=== PATIENT | female | born 1975 | race Caucasian/White ===

== ENCOUNTER → 2016-03-31 | Outpatient (REF) | payer OTHER ==
[~2016-03-31] MED LIST: IRON65TA PO; MEDR10TA PO; PERCOCET PO
== END ==
LOC: M LAB REF 16:10
PROVIDERS: ATTEND Surgery
DX: N39.0 Urinary tract infection, site not specified (principal)

== ENCOUNTER 2016-06-15 20:07 | Emergency (ER) | payer OTHER ==
[~2016-06-15] VITALS: Ht 162.6 cm; Wt 83.5 kg
[2016-06-15] MEDS ORDERED: LEXA1TAB2 PO (20:20)
[2016-06-15] MEDS ORDERED: VIST25CA PO (20:20)
[2016-06-15] MEDS ORDERED: KETOROLAC 30 MG/ML VIAL (J1885) IV ONE (21:00)
[2016-06-15 21:01] LABS: BASO % 0.6 % (0.0-1.0); EOS # 0.4 K/mm3 (0.0-0.50); EOS % 5.4 % (0.0-3.0); LARGE UNSTAINED CELL # 0.2 K/mm3 (0.0-0.4); LARGE UNSTAINED CELL % 1.8 % (0.0-4.0); LYMPH # 2.6 K/mm3 (1.5-4.5); LYMPH % 30.2 % (24.0-44.0); MEAN CORPUSCULAR HEMOGLOBIN 20.3 pg (27.0-33.0); MEAN CORPUSCULAR HGB CONC 28.5 g/dl (32.0-36.5); MEAN CORPUSCULAR VOLUME 71.5 fl (80.0-96.0); MONO # 0.4 K/mm3 (0.0-0.8); MONO % 4.7 % (0.0-5.0); NEUTROPHILS # 4.7 K/mm3 (1.8-7.7); NEUTROPHILS % 57.3 % (36.0-66.0); PLATELET COUNT, AUTOMATED 316 k/mm3 (150-450); RED CELL DISTRIBUTION WIDTH 16.9 % (11.5-14.5); WHITE BLOOD COUNT 8.2 K/mm3 (4.0-10.0)
[2016-06-15 21:06] LABS: ADD MORPHOLOGY? YES
[2016-06-15 21:14] LABS: CONTROL LINE HCG INT CTR LINE PRESENT
[2016-06-15 21:19] LABS: ANION GAP 5 MEQ/L (8-16); BLOOD UREA NITROGEN 10 MG/DL (7-18); CALCIUM LEVEL 8.1 MG/DL (8.5-10.1); CARBON DIOXIDE LEVEL 29 MEQ/L (21-32); CHLORIDE LEVEL 106 MEQ/L (98-107); GLOMERULAR FILTRATION RATE > 60.0 (>58); GLUCOSE, FASTING 87 MG/DL (70-105); POTASSIUM SERUM 3.8 MEQ/L (3.5-5.1); SODIUM LEVEL 140 MEQ/L (136-145)
[2016-06-15 21:26] LABS: ANISOCYTOSIS 1+; HYPOCHROMASIA 2+; MICROCYTOSIS 1+; POLYCHROMASIA 1+
[2016-06-15] MEDS ORDERED: NAPR500T PO (22:13)
[2016-06-15 22:17] VITALS: BP 109/68
== END 2016-06-15 22:21 | disposition home or self-care (01) ==
LOC: M ED 20:48
DX: R10.9 Unspecified abdominal pain (principal); Z79.899 Other long term (current) drug therapy; Z88.1 Allergy status to other antibiotic agents; Z88.8 Allergy status to other drugs, medicaments and biological substances
CPT/HCPCS: 80048; 81001; 84703; 85025; 87086; 96374; 99282; J1885

== ENCOUNTER → 2016-11-10 | Outpatient (REF) | payer OTHER ==
[~2016-11-10] MED LIST changes: +LEXA1TAB2 PO; +NAPR500T PO; +VIST25CA PO
[2016-11-12 07:38] LABS: HEPATITIS B SURFACE ANTIBODY NEGATIVE (POSITIVE)
== END ==
LOC: M SFHCLERA 15:02
PROVIDERS: ATTEND Family Medicine
DX: Z00.00 Encounter for general adult medical examination without abnormal findings (principal)

== ENCOUNTER → 2017-03-16 | Outpatient (CLI) | payer OTHER | LOC: M LRY 11:17 | DX: M12.9 Arthropathy, unspecified (principal); M54.5 Low back pain | CPT/HCPCS: 72110 ==

== ENCOUNTER → 2018-04-07 | Outpatient (CLI) | payer OTHER ==
[~2018-04-07] MED LIST changes: +NAPR-50 PO; -NAPR500T PO
--- NOTE | 2018-04-07 15:01 | REP ---
MR CERVICAL SPINE WITHOUT CONTRAST: HISTORY: Neck pain. A small left paracentral and intraforaminal disc protrusion with associate osteophyte formation is present at the C3-4 level. There is minimal effacement of the thecal sac without spinal cord compression. Uncinate process hypertrophy is present on the left. There is mild narrowing of the left C3 neural foramen. The right C3 neural foramen is patent. A disc bulge with associated osteophyte formation is present at the C4-5 level. There is moderate effacement of the thecal sac without spinal cord compression. Bilateral uncinate process hypertrophy is present. This produces mild and minimal narrowing of the right and left C4 neural foramina respectively. A disc bulge and small left paracentral disc protrusion with associate osteophyte formation are present at the C5-6 level. There is moderate effacement of the thecal sac without spinal cord compression. Bilateral uncinate process hypertrophy is present. This produces minimal narrowing of the C5 neural foramina. There is no other disc bulge or herniation. The remaining neural foramina are patent. The spinal cord is normal in signal intensity. The C3-4 through C5-6 intervertebral discs are decreased in height, consistent with disc degeneration. Increased signal intensity on T2-weighted images is present in the endplates of the C4 and C5 vertebral bodies. This represents degenerative change. IMPRESSION: There is cervical spondylosis at the C3-4 through C5-6 levels without spinal cord compression. Electronically Signed by Dat Chau MD 04/07/2018 03:16 P
== END ==
LOC: M RAD 13:08
PROVIDERS: ATTEND Physician Assistant
DX: M50.221 Other cervical disc displacement at C4-C5 level (principal); M50.222 Other cervical disc displacement at C5-C6 level; M47.892 Other spondylosis, cervical region

== ENCOUNTER → 2018-05-15 | Outpatient (REF) | payer OTHER | LOC: M SFHCLUC 16:42 | PROVIDERS: ATTEND Nurse Practitioner Family | DX: R53.81 Other malaise (principal) ==

== ENCOUNTER → 2018-11-14 | Outpatient (REF) | payer OTHER ==
[~2018-11-14] MED LIST changes: -NAPR-50 PO; +NAPR-837 PO
[2018-11-14 17:01] LABS: BASO % 0.5 % (0.0-1.0); EOS # 0.4 10^3/uL (0.0-0.5); EOS % 5.3 % (0.0-3.0); HEMATOCRIT 30.9 % (36.0-47.0); HEMOGLOBIN 8.4 g/dl (12.0-15.5); LYMPH # 2.1 10^3/uL (1.5-5.0); LYMPH % 29.2 % (24.0-44.0); MEAN CORPUSCULAR HEMOGLOBIN 20.1 pg (27.0-33.0); MEAN CORPUSCULAR HGB CONC 27.2 g/dl (32.0-36.5); MEAN CORPUSCULAR VOLUME 74.1 fl (80.0-96.0); MONO # 0.6 10^3/uL (0.0-0.8); MONO % 8.6 % (0.0-5.0); NEUTROPHILS # 4.1 10^3/uL (1.5-8.5); NEUTROPHILS % 56.1 % (36.0-66.0); PLATELET COUNT, AUTOMATED 296 10^3/uL (150-450); RED BLOOD COUNT 4.17 10^6/uL (4.00-5.40); WHITE BLOOD COUNT 7.3 10^3/uL (4.0-10.0)
[2018-11-14 17:34] LABS: PERCENT SATURATION 3.5 % (13.2-45.0); THYROID STIMULATING HORMONE 1.35 uIU/ML (0.358-3.740)
== END ==
LOC: M SFHCLERA 10:59
PROVIDERS: ATTEND Family Medicine
DX: D50.9 Iron deficiency anemia, unspecified (principal); F41.8 Other specified anxiety disorders

== ENCOUNTER 2018-11-24 04:06 | Inpatient (IN) | payer OTHER ==
[~2018-11-24] VITALS: Ht 162.6 cm; Wt 75.6 kg
[2018-11-24] MEDS ORDERED: FERR325T18 (04:16)
[2018-11-24] MEDS ORDERED: NS 2,090 ML in IV 1 EA IV ONE (04:45)
[2018-11-24] MEDS ORDERED: KETOROLAC 30 MG/ML VIAL (J1885) IV ONE (04:45)
[2018-11-24 04:52] LABS: BASO % 0.3 % (0.0-1.0); EOS % 0.1 % (0.0-3.0); HEMATOCRIT 30.2 % (36.0-47.0); HEMOGLOBIN 8.6 g/dl (12.0-15.5); LYMPH # 0.7 10^3/uL (1.5-5.0); LYMPH % 4.4 % (24.0-44.0); MEAN CORPUSCULAR HGB CONC 28.5 g/dl (32.0-36.5); MEAN CORPUSCULAR VOLUME 70.1 fl (80.0-96.0); MONO # 1.3 10^3/uL (0.0-0.8); MONO % 8.4 % (0.0-5.0); NEUTROPHILS # 13.5 10^3/uL (1.5-8.5); NEUTROPHILS % 86.4 % (36.0-66.0); PLATELET COUNT, AUTOMATED 256 10^3/uL (150-450); RED BLOOD COUNT 4.31 10^6/uL (4.00-5.40); WHITE BLOOD COUNT 15.6 10^3/uL (4.0-10.0)
[2018-11-24 05:20] LABS: ALBUMIN 3.1 GM/DL (3.2-5.2); ALT/SGPT 20 U/L (12-78); BILIRUBIN,DIRECT 0.2 MG/DL (0.0-0.2); BILIRUBIN,TOTAL 0.5 MG/DL (0.2-1.0); BLOOD UREA NITROGEN 9 MG/DL (7-18); CALCIUM LEVEL 8.6 MG/DL (8.5-10.1); CARBON DIOXIDE LEVEL 26 MEQ/L (21-32); CHLORIDE LEVEL 102 MEQ/L (98-107); CREATININE FOR GFR 0.88 MG/DL (0.55-1.30); GLOMERULAR FILTRATION RATE > 60.0 (>58); GLUCOSE, FASTING 114 MG/DL (70-100); POTASSIUM SERUM 3.3 MEQ/L (3.5-5.1); SODIUM LEVEL 135 MEQ/L (136-145); TOTAL PROTEIN 7.6 GM/DL (6.4-8.2)
[2018-11-24 05:23] LABS: INFLUENZA A AMPLIFICATION NEGATIVE (NEGATIVE); INFLUENZA B AMPLIFICATION NEGATIVE (NEGATIVE)
[2018-11-24 05:27] LABS: APPEARANCE, URINE TURBID (CLEAR); BACTERIA, URINE AUTO 2+ (NEGATIVE); BILIRUBIN, URINE AUTO NEGATIVE (NEGATIVE); BLOOD, URINE BLOOD 1+ (NEGATIVE); COLOR, URINE AMBER (YELLOW); GLUCOSE, URINE (UA) AUTO NEGATIVE (NEGATIVE); KETONE, URINE AUTO NEGATIVE (NEGATIVE); LEUKOCYTE ESTERASE, URINE AUTO 2+ (NEGATIVE); MUCUS, URINE LARGE (NEGATIVE); NITRITE, URINE AUTO POSITIVE (NEGATIVE); PROTEIN, URINE AUTO 3+ mg/dL (NEGATIVE); RBC, URINE AUTO 28 /HPF (0-3); SPECIFIC GRAVITY URINE AUTO 1.023 (1.002-1.035); SQUAMOUS EPITHELIAL CELL UR AU 49 /HPF (0-6); WBC, URINE AUTO TNTC /HPF (0-3)
[2018-11-24] MEDS ORDERED: PIPERACILLIN/TAZOBACTAM SOD 3.375 GM in D5W MINI-BAG PLUS 50 ML IV ONE (06:15)
[2018-11-24] MEDS ORDERED: ACET-897 PO (06:21)
[2018-11-24] MEDS ORDERED: HYDR-3363 PO (06:21)
[2018-11-24] MEDS ORDERED: FERR1TAB8 PO (06:21)
[2018-11-24] MEDS ORDERED: MORPHINE 4 MG/ML 1ML VIAL/SYRINGE (J2270) IV PRN (06:45)
[2018-11-24] MEDS ORDERED: ONDANSETRON 4MG/2ML VIAL (J2405) IV ONE (07:00)
--- NOTE | 2018-11-24 07:31 | REPVR ---
PROCEDURE INFORMATION: Exam: CT Abdomen and pelvis without contrast Exam date and time: 11/24/2018 6:02 AM Clinical history: 43 years old, female; Abdominal pain; Flank; Left; Additional info: Pyelonephritis, left sided flank pain TECHNIQUE: Imaging protocol: Computed tomography of the abdomen and pelvis without contrast. Radiation optimization: All CT scans at this facility use at least one of these dose optimization techniques: automated exposure control; mA and/or kV adjustment per patient size (includes targeted exams where dose is matched to clinical indication); or iterative reconstruction. COMPARISON: Pelvic ultrasound 06/12/2013 FINDINGS: Detailed evaluation of the abdominal and pelvic viscera is somewhat limited in the absence of intravenous contrast. Pleural space: No acute airspace or pleural disease. Liver: Focal fatty infiltration of the liver. Gallbladder and bile ducts: Cholelithiasis. No biliary ductal dilatation. Pancreas: No pancreatic mass or ductal dilatation. Spleen: Enlarged spleen measuring 14.1 cm in length. Adrenals: Unremarkable adrenals. Kidneys and ureters: Lobulated renal morphology. 1 mm nonobstructing right renal calculus. Asymmetric infiltration of left perinephric fat. If pyelonephritis is of clinical concern delayed postcontrast CT imaging would be recommended for improved characterization. Stomach and bowel: Gastric bypass. Mild small bowel dilatation without a focal transition zone. Prominent stool. Diverticula, without pericolonic inflammation. Appendix: No acute appendicitis. Intraperitoneal space: No significant free fluid. Vasculature: Normal caliber of the abdominal aorta. Pelvic vascular calcifications. Lymph nodes: Subcentimeter lymph nodes. Bladder: Normal morphology of the nondistended bladder. Reproductive: Status post hysterectomy. Bones/joints: Mild degenerative change. Soft tissues: Posterior subcutaneous fluid. IMPRESSION: 1. Cholelithiasis. 2. 1 mm nonobstructing right renal calculus. 3. Asymmetric infiltration of left perinephric fat. If pyelonephritis is of clinical concern delayed postcontrast CT imaging would be recommended for improved characterization. 4. Additional findings as described above. Electronically signed by: Trenton Welsh On 11/24/2018 07:31:07 AM
[2018-11-24] MEDS ORDERED: PERCOCET 5MG/325MG TAB PO PRN (08:00)
[2018-11-24] MEDS: NS 1,000 ML IV SCH ×2 (08:00→12:26)
[2018-11-24] MEDS ORDERED: POTASSIUM CHLORIDE 10 MEQ SR TABLET PO ONE ×2 (08:30→13:00)
[2018-11-24] MEDS: ENOXAPARIN 40 MG/0.4 ML SYRINGE (J1650) SC SCH (11:59)
[2018-11-24] MEDS: PERCOCET 5MG/325MG TAB PO PRN ×2 (12:08→18:13)
[2018-11-24 13:34] LABS: FERRITIN 20 NG/ML (8-252); IRON (FE) 15 UG/DL (50-170); PERCENT SATURATION 3.6 % (13.2-45.0); TOTAL IRON BINDING CAPACITY 413 UG/DL (250-450)
[2018-11-24 14:15] VITALS: BP 115/67
[2018-11-24] MEDS: MORPHINE 4 MG/ML 1ML VIAL/SYRINGE (J2270) IV PRN ×2 (14:28→21:54)
[2018-11-24] MEDS: cefTRIAXone SOD 2 GM in D5W MINI-BAG PLUS 50 ML IV SCH (14:52)
--- NOTE | 2018-11-24 15:48 | HPE ---
DATE OF ADMISSION: 11/24/2018 CHIEF COMPLAINT: Fever, back pain. HISTORY OF PRESENT ILLNESS: This is a 43-year-old female with a history of iron deficiency anemia due to gastric bypass surgery, hysterectomy in the past, presents to the emergency room with complaints of fever, aches and chills on Tuesday night with back pain, left greater than the right, all the way across. The patient has been very uncomfortable since Tuesday with worsening pain. Denies dysuria, urgency, frequency. She says that it hurts to touch her legs. No nausea or vomiting. No abdominal pain. No bright red blood per rectum, melena, black/tarry stools or any history of hematemesis. She has been increasingly fatigued, weak with some shortness of breath when she ambulates around and carries her groceries. The patient is chronically anemic and had previously received blood transfusion. She is noted to have a hemoglobin of 8, white count of 15,000, urine consistent with a urinary tract infection (UTI) and CT shows possible pyelonephritis. In the emergency room, she was found to be febrile at 103.4. Given IV fluids and IV Zosyn due to allergy to Levaquin causing a rash. The patient is unable to take ibuprofen due to history of gastric bypass surgery and was given Tylenol with resultant decrease in fever from 103.4 to 99.1. The hospitalist service was called to admit for a urinary tract infection (UTI), pyelonephritis. The patient does not take any nonsteroidal antiinflammatory drugs (NSAIDs), ibuprofen or Naprosyn for her fever. Has taken Tylenol at home. PAST MEDICAL HISTORY: 1. Iron deficiency anemia requiring blood transfusion previously, 1 unit. 2. History of urinary tract infection. 3. History of obesity, status post gastric bypass surgery. 4. History of shoulder arthritis. 5. Anxiety and depression. PAST SURGICAL HISTORY: 1. Hysterectomy. 2. Gastric bypass surgery. 3. Two shoulder surgeries. 4. Tubal ligation. 5. In vitro fertilization. HOME MEDICATIONS: - Tylenol 1 gram every 6 hours as needed for pain - Lexapro 20 mg daily - ferrous sulfate 325 mg twice a day - hydroxyzine 25 mg every 8 hours as needed for anxiety ALLERGIES: LEVAQUIN causing hives, IBUPROFEN cannot be taken due to history of gastric bypass surgery. SOCIAL HISTORY: No cigarette use. Occasional alcohol with mixed drinks. She previously worked in medical billing, not working currently, she is a housewife. FAMILY HISTORY: Mid 60s mother and father. Father had CVA, skin cancer, coronary artery disease, myocardial infarction. Mother in her 60s with anxiety, depression, AVM, and brain surgery. REVIEW OF SYSTEMS: As per history of present illness. 12-point system otherwise negative. PHYSICAL EXAMINATION: Temperature 103.4, pulse 125 and sinus rhythm, respiratory rate 20, blood pressure 118/76. GENERAL: Awake, alert, oriented times three. Answering questions appropriately. No respiratory distress. No cyanosis. No use of respiratory accessory muscles. No jugular venous distention (JVD), thyromegaly or cervical lymphadenopathy. LUNGS: Clear to auscultation. No wheezing, rales or rhonchi. HEART: S1, S2. Sinus tachycardia. No murmurs, rubs or gallops. ABDOMEN: Soft, nontender, nondistended. Positive bowel sounds. Positive costovertebral angle tenderness bilaterally. EXTREMITIES: No cyanosis, clubbing or pitting edema. LABORATORY DATA: White count 15.6, hemoglobin 8.6, hematocrit 30.2, platelet count 256. Sodium 135, potassium 3.3, chloride 102, bicarbonate 26, BUN 9, creatinine 0.88, glucose 114, lactic acid 2.1 with beta lactic acid 0.7, calcium 8.6, total bilirubin 0.5, direct bilirubin 0.2, AST 19, ALT 20, alkaline phosphatase 134, total protein 7.6, albumin 3.1. CT of the abdomen and pelvis showing obstructive 1 mm kidney stone, fatty liver, gastric bypass, cholelithiasis. Microbiology: Two sets of blood cultures pending. Respiratory panel is negative. Urine culture is pending. Urinalysis showed turbid appearance, pH of 5, protein 3+, 1+ blood, 4 urobilinogen, 2+ leukocyte esterase, too numerous to count white cells, RBCs of 28, 2+ bacteria. ASSESSMENT AND PLAN: This is a 43-year-old female with a history of iron deficiency anemia, gastric bypass surgery, hysterectomy, prior history of blood transfusion of 1 unit, recurrent urinary tract infections, admitted for pyelonephritis. 1. Pyelonephritis. The patient is allergic to Levaquin causing a rash. Ibuprofen cannot be used due to a history of gastric bypass surgery and increased risk of ulcers and gastrointestinal bleed. She will be given Tylenol for fever, Percocet one to two tablets for pain, morphine for breakthrough pain, and she did receive IV Zosyn from the emergency room, currently on ceftriaxone. Await urine culture results. 2. Symptomatic anemia. The patient complains of shortness of breath, generalized weakness, fatigue, unable to perform her usual activities. Hemoglobin is 8.6, microcytic and appears to be secondary to iron deficiency. RDW is elevated. We will check reticulocyte count and smear. At this time, the patient will be given red blood cell transfusion. She has been advised to the pros and cons of blood transfusion, including but not limited to hepatitis B and C, HIV transmission, hemolytic reaction, fluid overload, and acute lung injury. THe patient was agreeable to proceed with blood transfusion. 3. Fatigue, most likely secondary to symptomatic anemia. She does have a history of depression and will be continued on Prozac. We will check a TSH to rule out hypothyroidism. 4. Anxiety and depression. Resume home dose of Prozac and Atarax as needed. 5. Deep vein thrombosis (DVT) prophylaxis with compression stockings. Encourage ambulation. 6. History of gastric bypass surgery, most likely complicating severe iron deficiency. 7. Sepsis secondary to urinary tract infection (UTI). On IV fluids and IV antibiotic. 8. Low potassium, most likely due to decreased oral intake. The patient has been supplemented with potassium 40 mEq by mouth times one. MTDD
[2018-11-24] MEDS: ASCORBIC ACID 500 MG TAB PO SCH (18:12)
[2018-11-24] MEDS: hydrOXYzine 25 MG TAB PO PRN (21:53)
[2018-11-24] MEDS: FERROUS SULFATE 325MG TAB PO SCH (21:53)
[2018-11-24 23:10] LABS: HEMATOCRIT 28.5 % (36.0-47.0); HEMOGLOBIN 8.3 g/dl (12.0-15.5)
[2018-11-24] MEDS ORDERED: diphenhydrAMINE 25 MG CAP PO ONE (23:30)
[2018-11-25] MEDS: PERCOCET 5MG/325MG TAB PO PRN ×3 (00:35→19:44)
[2018-11-25] MEDS ORDERED: PERCOCET 5MG/325MG TAB PO ONE (05:30)
[2018-11-25 06:00] VITALS: BP 105/69
[2018-11-25 06:50] LABS: HEMATOCRIT 29.7 % (36.0-47.0); HEMOGLOBIN 8.6 g/dl (12.0-15.5); MEAN CORPUSCULAR HEMOGLOBIN 21.6 pg (27.0-33.0); MEAN CORPUSCULAR VOLUME 74.4 fl (80.0-96.0); PLATELET COUNT, AUTOMATED 210 10^3/uL (150-450); RED BLOOD COUNT 3.99 10^6/uL (4.00-5.40); WHITE BLOOD COUNT 8.3 10^3/uL (4.0-10.0)
[2018-11-25 07:08] LABS: BLOOD UREA NITROGEN 7 MG/DL (7-18); CALCIUM LEVEL 7.8 MG/DL (8.5-10.1); CARBON DIOXIDE LEVEL 25 MEQ/L (21-32); CHLORIDE LEVEL 104 MEQ/L (98-107); CREATININE FOR GFR 0.78 MG/DL (0.55-1.30); GLOMERULAR FILTRATION RATE > 60.0 (>58); GLUCOSE, FASTING 101 MG/DL (70-100); POTASSIUM SERUM 3.2 MEQ/L (3.5-5.1); SODIUM LEVEL 137 MEQ/L (136-145)
[2018-11-25] MEDS: ASCORBIC ACID 500 MG TAB PO SCH ×2 (08:48→16:57)
[2018-11-25] MEDS: FERROUS SULFATE 325MG TAB PO SCH ×2 (08:48→21:22)
[2018-11-25] MEDS: ENOXAPARIN 40 MG/0.4 ML SYRINGE (J1650) SC SCH (08:49)
[2018-11-25] MEDS: ESCITALOPRAM OXALATE 10 MG TAB (LEXAPRO) PO SCH (08:49)
[2018-11-25 09:06] LABS: IONIZED CALCIUM 4.5 MG/DL (4.5-5.3)
[2018-11-25] MEDS ORDERED: POTASSIUM CHLORIDE 10 MEQ SR TABLET PO ONE (10:00)
[2018-11-25] MEDS ORDERED: CALCIUM GLUCONATE 1,000 MG in D5W MINI-BAG PLUS 100 ML IV ONE (10:00)
[2018-11-25 10:46] LABS: MAGNESIUM LEVEL 1.8 MG/DL (1.8-2.4)
[2018-11-25] MEDS: cefTRIAXone SOD 2 GM in D5W MINI-BAG PLUS 50 ML IV SCH (12:02)
[2018-11-25] MEDS ORDERED: MAG SULF 1GM/100ML (MAG RUN) 1 GM in IV 1 EA IV ONE (13:00)
[2018-11-25 14:00] VITALS: BP 112/73
--- NOTE | 2018-11-25 14:41 | IPN ---
DATE: 11/25/2018 Patient remains febrile with 101 temperature at 6:00 a.m. Continues to complain of back pain across he back without dysuria, urgency, or frequency. Denies any chills, nausea or vomiting. Tolerating her diet well. PHYSICAL EXAMINATION: Temperature T-max 101 at 6:00 a.m., 99.6 currently, 105 pulse, respiratory rate 17, blood pressure 105/69, 98% on room air. Generally awake, alert and oriented times three. No respiratory distress. No pallor or icterus. No jaundice. Pupils are round and reactive. Extraocular muscles are intact. Neck is supple. Full range of motion. Lungs are clear to auscultation. No wheezing, rales or rhonchi. Heart S1, S2 sinus rhythm. Abdomen is soft, nontender, nondistended. Positive bowel sounds. Positive CVA tenderness. Extremities no cyanosis, clubbing or pitting edema. Laboratory data reviewed. Microbiology reviewed. Imaging studies reviewed. ASSESSMENT/PLAN: 43-year-old with gastric bypass with chronic iron deficiency anemia, history of recurrent urinary tract infections, shoulder arthritis, anxiety, depression, hysterectomy, tubal ligation and IVF who presented to the emergency room with a fever of 103.4, white count of 15,000 found to have pyelonephritis. Due to allergy to Levaquin, the patient was given IV Zosyn in the ER and continued on IV ceftriaxone. The patient did complain of symptomatic anemia with a hemoglobin of 8.6 to 8.3 with complaints of weakness and generalized fatigue and some shortness of breath and was transfused 2 units of blood with subsequent fever. Blood was then sent for a blood transfusion reaction inquiry. CURRENT ISSUES: 1. Pyelonephritis on IV ceftriaxone, still febrile with T-max of 101 this morning. White count is normal at 8. Patient is continued on full supportive care awaiting urine and blood culture results. 2. Possible blood transfusion reaction. Hemolytic workup has been sent. The patient did receive 2 units of blood for symptomatic anemia, vitamin C and iron has been given. Currently no signs of active GI bleed. Denies hematemesis, bright red blood per rectum, melena or black tarry stools. 3. Iron deficiency anemia. Most likely due to decreased absorption status post gastric bypass surgery. The patient has been kept on vitamin C, iron supplements, status post 2 units of RBC transfusion. The second had to be discontinued due to complaints of fever. At that time, transfusion reaction protocol was followed, result of which are still pending for hemolysis. 4. Anxiety/depression. Resumed on her home medications. Lexapro and Atarax. 5. Deep vein thrombosis (DVT) prophylaxis with Lovenox. MTDD
[2018-11-25 22:00] VITALS: BP 127/82
[2018-11-26] MEDS: PERCOCET 5MG/325MG TAB PO PRN ×2 (02:22→08:25)
[2018-11-26 06:00] VITALS: BP 103/61
[2018-11-26] MEDS: FERROUS SULFATE 325MG TAB PO SCH ×2 (08:18→21:01)
[2018-11-26] MEDS: ENOXAPARIN 40 MG/0.4 ML SYRINGE (J1650) SC SCH (08:18)
[2018-11-26] MEDS: ASCORBIC ACID 500 MG TAB PO SCH ×2 (08:18→17:16)
[2018-11-26] MEDS: ESCITALOPRAM OXALATE 10 MG TAB (LEXAPRO) PO SCH (08:18)
[2018-11-26] MEDS ORDERED: SENOKOT S TAB PO PRN (10:15)
[2018-11-26] MEDS ORDERED: MOM 30ML SUSPENSION UDC PO PRN (10:15)
[2018-11-26] MEDS ORDERED: NALOXONE INJ 0.4 MG/1 ML VIAL (J2310) IV PRN (10:15)
[2018-11-26] MEDS ORDERED: MORPHINE 30 MG TAB **MSIR PO ONE (10:30)
[2018-11-26] MEDS ORDERED: KETOROLAC 30 MG/ML VIAL (J1885) IV ONE (10:30)
[2018-11-26] MEDS ORDERED: ACETAMINOPHEN 500 MG TAB PO ONE (10:30)
[2018-11-26] MEDS: cefTRIAXone SOD 2 GM in D5W MINI-BAG PLUS 50 ML IV SCH (11:11)
[2018-11-26 11:15] LABS: HEMATOCRIT 26.5 % (36.0-47.0); HEMOGLOBIN 7.9 g/dl (12.0-15.5); MEAN CORPUSCULAR HEMOGLOBIN 21.8 pg (27.0-33.0); MEAN CORPUSCULAR HGB CONC 29.8 g/dl (32.0-36.5); MEAN CORPUSCULAR VOLUME 73.2 fl (80.0-96.0); PLATELET COUNT, AUTOMATED 164 10^3/uL (150-450); RED BLOOD COUNT 3.62 10^6/uL (4.00-5.40); WHITE BLOOD COUNT 5.6 10^3/uL (4.0-10.0)
[2018-11-26 11:40] LABS: BLOOD UREA NITROGEN 6 MG/DL (7-18); CALCIUM LEVEL 7.3 MG/DL (8.5-10.1); CARBON DIOXIDE LEVEL 27 MEQ/L (21-32); CHLORIDE LEVEL 107 MEQ/L (98-107); CREATININE FOR GFR 0.74 MG/DL (0.55-1.30); GLOMERULAR FILTRATION RATE > 60.0 (>58); GLUCOSE, FASTING 117 MG/DL (70-100); MAGNESIUM LEVEL 1.9 MG/DL (1.8-2.4); POTASSIUM SERUM 3.7 MEQ/L (3.5-5.1); SODIUM LEVEL 140 MEQ/L (136-145)
[2018-11-26] MEDS: OMEPRAZOLE 20 MG CAP PO SCH (11:41)
[2018-11-26] MEDS ORDERED: NS 1,000 ML IV SCH (12:00)
--- NOTE | 2018-11-26 12:14 | IPN ---
DATE OF SERVICE: 11/26/2018 The patient complains of severe pain bilateral posterior vertebral ankle with fever of 101 at 2200 on 11/25/2018. Microbiology E. Coli persistent to ampicillin and ampicillin sulbactam. Blood culture negative. CT abdomen and pelvis shows cholelithiasis, nonobstructing right renal calculus, pyelonephritis. No nausea. No vomiting. No abdominal pain. Describes the pain as 8 out of 10. No chills. No cough. Temperature 98.6, pulse 82, respiratory 16, blood pressure 103/61, 91% on room air. Generally, patient is awake, alert, oriented times three, answering questions appropriately. Lungs: Clear to auscultation. No wheezing, rales or rhonchi. Heart: S1, S2. Sinus rhythm. No murmurs, rubs or gallops. Abdomen is soft, nontender, nondistended. Positive bowel sounds. Positive costovertebral angle (CVA) tenderness bilaterally. No rebound, guarding. No hepatosplenomegaly. No abdominal bruit. Extremities: No cyanosis, clubbing. Skin: Warm, dry, pink in color, well perfused. 11/25: CBC, metabolic panel have been reviewed. 11/26 lab work not available. Microbiology: E. Coli urine culture resistant to ampicillin, ampicillin sulbactam. ASSESSMENT AND PLAN: This is a 43-year-old female with history of gastric bypass with iron deficiency, chronic anemia, anxiety, depression, presented to the ER with fever of 103, white count 15, found to have sepsis due to pyelonephritis. Due to allergy to Levaquin, patient was given IV Zosyn and is currently continued on IV ceftriaxone. She did complain of symptomatic anemia with hemoglobin of 8.3 and weakness and generalized fatigue and shortness of breath. Transfused 2 units with concurrent fever. Patient's red blood cell was sent for blood transfusion reaction inquiry. CURRENT ISSUES: Pyelonephritis doing well. Urine culture was resistant to ampicillin, ampicillin sulbactam with E. Coli. T-max was 101 at 2200 on 11/25. White count was normal yesterday, awaiting CBC today. Blood culture is negative. May discharge home on cefdinir, doxycycline or Bactrim. Possible blood transfusion reaction, final results unavailable. She was transfused 2 units of blood for symptomatic anemia. Symptomatic iron deficiency anemia with history of gastric bypass surgery, possible GI bleed. Patient had been transfused 2 units. Prilosec 20 mg daily. DISCHARGE PLAN: If afebrile overnight, may discharge in the morning. May need EGD to rule out anastomotic ulcer or erosion causing GI bleed if heme positive stool. MTDD
[2018-11-26 14:00] VITALS: BP 103/65
[2018-11-26] MEDS: ACETAMINOPHEN 500 MG TAB PO SCH (21:00)
[2018-11-26] MEDS: hydrOXYzine 25 MG TAB PO PRN (21:00)
[2018-11-26] MEDS: MORPHINE 30 MG TAB **MSIR PO PRN (21:01)
[2018-11-26 22:00] VITALS: BP 118/78
[2018-11-27] MEDS: MORPHINE 30 MG TAB **MSIR PO PRN (05:19)
[2018-11-27 06:00] VITALS: BP 115/79
[2018-11-27] MEDS: ACETAMINOPHEN TAB 650MG DOSE (2X325MG) PO PRN ×2 (06:29→18:27)
[2018-11-27] MEDS ORDERED: ISOVUE-370 76% 100ML VIAL (Q9967) As Ordered ONE (08:11)
--- NOTE | 2018-11-27 08:31 | REP ---
PA and lateral chest: Comparisons are 07/28/2015 and 05/25/2013. There is interstitial coarsening in the left lung inferiorly compatible with focal interstitial infiltrate. There is a small left pleural effusion. Right lung is clear. Cardiac size is normal. The tom, mediastinum, skeletal structures are unremarkable. Impression: Infiltrate inferiorly in the left lung. Small left pleural effusion. Electronically Signed by Josh Muñoz MD 11/27/2018 08:21 A
[2018-11-27] MEDS: ACETAMINOPHEN 500 MG TAB PO SCH ×3 (09:00→22:39)
--- NOTE | 2018-11-27 09:05 | REP ---
CT of the chest with IV contrast: Comparison is the PA and lateral chest performed earlier today. There is an infiltrate in the left lower lobe and a small left pleural effusion. Additionally, there is a small infiltrate posteriorly in the left upper lobe. There is also a subtle infiltrate medially in the right lower lobe. There is no right pleural effusion. The thoracic aorta is unremarkable. Cardiac size is normal. There is no pericardial effusion. There is no mediastinal, hilar or axillary lymphadenopathy. The visualized upper abdominal contents are unremarkable. However, on the abdomen/pelvis CT of 11/24/2018. Gallbladder calculi were identified. These are excluded on the current study. Impression: Left lower lobe and left upper lobe infiltrates. Small left pleural effusion. Small right lower lobe infiltrate. Cholelithiasis. Electronically Signed by Josh Muñoz MD 11/27/2018 08:56 A
[2018-11-27] MEDS: ASCORBIC ACID 500 MG TAB PO SCH ×2 (09:18→18:27)
[2018-11-27] MEDS: ESCITALOPRAM OXALATE 10 MG TAB (LEXAPRO) PO SCH (09:19)
[2018-11-27] MEDS: FERROUS SULFATE 325MG TAB PO SCH ×2 (09:19→20:57)
[2018-11-27] MEDS: OMEPRAZOLE 20 MG CAP PO SCH (09:19)
[2018-11-27] MEDS: ENOXAPARIN 40 MG/0.4 ML SYRINGE (J1650) SC SCH (09:20)
[2018-11-27 10:18] LABS: IMMUNOGLOBULIN G 1080 MG/DL (681-1648); LDH LACTATE DEHYDROGENASE 172 U/L (84-246); RHEUMATOID FACTOR QUANT < 10.0 IU/ML (<15.0)
[2018-11-27] MEDS: cefTRIAXone SOD 2 GM in D5W MINI-BAG PLUS 50 ML IV SCH (11:14)
[2018-11-27 11:24] LABS: MONO REFLEX EBV COMP NEGATIVE (NEGATIVE)
[2018-11-27 12:08] LABS: HIV 1&2 SCREEN CENTAUR NEGATIVE (NEGATIVE)
[2018-11-27 14:00] VITALS: BP 120/74
[2018-11-27 14:23] LABS: COMPLEMENT C3 117 MG/DL (90-180); COMPLEMENT C4 22 MG/DL (10-40)
--- NOTE | 2018-11-27 14:37 | IPN ---
DATE: 11/27/2018 Patient continues to be febrile with a maximum temperature (T-max) of 101.1 this morning. Pain the lower back bilaterally is slightly improved despite ceftriaxone. Patient still complains of some dysuria. No urgency or frequency. She also complains of a headache but no neck rigidity. No confusion or changes in vision. Patient's white count has decreased to normal at 5.6. She still continues to complains of generalized weakness. Transfusion reaction was negative. Hemoglobin is 7.9 after patient has been given four liters of intravenous fluid from admission. Patient has remained net negative balance for the past three days. PHYSICAL EXAMINATION: Vital Signs: Temperature 100.3, maximum temperature (T-max) 101.1 at 6:00 a.m. this morning. Pulse 100, respiratory rate 16, blood pressure 115/79, 90-99% on room air. General: Patient is awake, alert, oriented times three. Answers questions appropriately. No icterus. No jaundice. No pallor. Tongue is midline. No facial asymmetry. Neck is supple. Full range of motion. No meningeal signs. Negative Kernig and Brudzinski signs. Lungs: Diminished with fine crackles bilaterally. Heart: S1, S2. Sinus rhythm with episodes of sinus tachycardia. Abdomen is soft, nontender, nondistended. Positive bowel sounds. Positive costovertebral angle (CARDIOVASCULAR A) tenderness bilaterally. Extremities: No cyanosis, clubbing or pitting edema. LABORATORY DATA: White count 5.6, hemoglobin 7.9, hematocrit 26.5, platelet count 164. Sodium 140, potassium 3.7, chloride 107, bicarbonate 27, BUN 6, creatinine 0.74, glucose 117, magnesium 1.9, calcium 7.3, LDH 172. Ionized calcium yesterday was 4.5. Microbiology 11/26/2018: Hemoccult stool is negative. Positive urine culture for E Coli with resistant to ampicillin, ampicillin sulbactam. Two sets of blood cultures are no growth after 72 hours. Respiratory panel was negative. CT chest shows left lower lobe and left upper lobe infiltrates, small left pleural effusion, right lower lobe infiltrate and cholelithiasis. ASSESSMENT/PLAN: This is a 43-year-old female admitted on 11/24/2018 with complaints of fever and back pain. In the emergency room, she was found to be febrile at 103.4, given IV ceftriaxone due to history of quinolone allergy. CT abdomen and pelvis showed pyelonephritis, urine culture grew out E Coli. She remains persistently febrile to 101 and was found on chest x-ray to have a left lower lobe, left upper lobe infiltrate and right small infiltrate at the base. Azithromycin has been added for a typical coverage. Urine is Streptococcus pneumoniae, Legionella, Mycoplasma has been sent. Respiratory panel is negative. She is kept on isolation, droplet precautions. ACUTE ISSUES: 1. Acute pyelonephritis currently on intravenous ceftriaxone. Urine culture showed E Coli with resistance to ampicillin, ampicillin sulbactam. Patient continues to be afebrile with Maximum temperature (T-max) of 101.1 despite 3 days of intravenous ceftriaxone. At this time, other inquiry included CT chest, which showed a new bibasilar infiltrate, left upper lobe infiltrate as well and small pleural effusion. Azithromycin has been added. Compliment levels as well as immunoglobulin levels, HIV have all been added as well as infectious disease consultation. 2. Left-sided pneumonia: Patient was net positive balance for the past 3 days due to sepsis due to urinary tract infection (UTI). Patient has also been given blood with hemolytic panel being negative and transfusion reaction was negative, due to left-sided infiltrates. The patient is continued on ceftriaxone. Azithromycin was added for atypicals. Urine legionella has been sent as well as mycoplasma. HIV is negative. Referred to Dr. Alexander for any changes in antibiotics. Infectious disease consultation has been made. 3. Symptomatic anemia with continuous complaints of generalized weakness as well as status post two units red blood cell transfusion with fever during the transfusion. Second unit on admission. Transfusion reaction history was negative for any transfusion reaction. No signs for hemolysis on the RBC peripheral smear as well. Due to hemoglobin of 7.9, most likely due to hemodilution with 4 liters of IV fluid given in the past 3 days. Patient will be given RBC transfusion one unit due to continued complaints of generalized weakness, Lasix to decrease risk of fluid overload. 4. Iron deficiency anemia in the setting of prior history of gastric bypass surgery. Hemoccult stool is negative. Patient is continued on iron and vitamin C. Have patient followup for further workup if persistent anemia occur. No signs of hemolysis according to the peripheral blood smear. Patient's retic count and RDW are adequate. Does not appear to have any bone marrow issues or signs of hemolysis. Most likely from bleeding. Defer to outpatient primary care provider (PCP) to refer to gastroenterology for possible esophagogastroduodenoscopy (EGD). Continue on Prilosec for now, vitamin C and iron tablets. 5. Anxiety and depression: She is continued on Atarax and Lexapro. MTDD
[2018-11-27] MEDS ORDERED: AZITHROMYCIN INJ 500 MG, VIAL MATE ADAPTER 1 EACH in D5W 250 ML IV SCH (15:00)
[2018-11-27] MEDS ORDERED: FUROSEMIDE 20 MG/2 ML VIAL (J1940) IV ONE (15:00)
[2018-11-27 16:01] LABS: BLOOD UREA NITROGEN 5 MG/DL (7-18); CALCIUM LEVEL 7.6 MG/DL (8.5-10.1); CARBON DIOXIDE LEVEL 29 MEQ/L (21-32); CHLORIDE LEVEL 106 MEQ/L (98-107); CREATININE FOR GFR 0.55 MG/DL (0.55-1.30); GLOMERULAR FILTRATION RATE > 60.0 (>58); GLUCOSE, FASTING 87 MG/DL (70-100); POTASSIUM SERUM 3.7 MEQ/L (3.5-5.1); SODIUM LEVEL 140 MEQ/L (136-145)
[2018-11-27 16:04] LABS: BASO % 0.4 % (0.0-1.0); EOS # 0.3 10^3/uL (0.0-0.5); EOS % 5.7 % (0.0-3.0); HEMATOCRIT 28.3 % (36.0-47.0); HEMOGLOBIN 8.2 g/dl (12.0-15.5); LYMPH # 1.2 10^3/uL (1.5-5.0); LYMPH % 22.1 % (24.0-44.0); MEAN CORPUSCULAR HEMOGLOBIN 21.5 pg (27.0-33.0); MEAN CORPUSCULAR VOLUME 74.3 fl (80.0-96.0); MONO # 0.5 10^3/uL (0.0-0.8); MONO % 8.7 % (0.0-5.0); NEUTROPHILS # 3.3 10^3/uL (1.5-8.5); NEUTROPHILS % 62.7 % (36.0-66.0); PLATELET COUNT, AUTOMATED 217 10^3/uL (150-450); RED BLOOD COUNT 3.81 10^6/uL (4.00-5.40); WHITE BLOOD COUNT 5.3 10^3/uL (4.0-10.0)
[2018-11-27 16:45] LABS: ERYTHROCYTE SEDIMENTATION RATE 52 mm/hr (0-20)
[2018-11-27 18:40] VITALS: BP 115/79
--- NOTE | 2018-11-27 20:28 | CR ---
DATE OF CONSULTATION: 11/27/2018 CONSULTATION REPORT FOR: Dr. Soni REASON FOR CONSULTATION: Evaluation of fever, back pain and headache. HISTORY OF PRESENT ILLNESS: Sirena is a pleasant 43-year-old female who presented to the hospital on 11/24/2018 complaining of fever, body aches and chills associated with low back pain, left greater than right along with a headache. The patient did not have dysuria, hematuria, urgency or frequency. She had pain down her legs. She did not have any nausea, vomiting, abdominal pain or diarrhea. She has a history of gastric bypass with chronic fatigue. She does not take her vitamins. She also was complaining of some shortness of breath with exertion. The patient has a history of chronic iron deficiency anemia for which she requires blood transfusion but does not take her iron supplements. She has a history of anxiety and depression. In the emergency room (ER), she was found to have a temperature of 103.4. She was started on IV Rocephin and her fever has decreased from 103-101. Her white count from 14,000 to normal but she remains febrile. She also continues with a headache. PAST MEDICAL HISTORY: Significant for iron deficiency anemia status post blood transfusions from gastric bypass, a history of urinary tract infection (UTI) last year and this second time, history of morbid obesity status post gastric bypass, shoulder arthritis, anxiety and depression. PAST SURGICAL HISTORY: Hysterectomy, gastric bypass 10 years ago, shoulder surgery, tubal ligation, in vitro fertilization. The patient has three healthy children. MEDICATIONS: At home, she is on: - Lexapro 20 mg daily - hydroxyzine 25 mg every eight hours - ferrous sulfate which she is supposed to take but does not twice a day She is currently on: - IV Rocephin 2 grams every 24 hours - Senokot two tablets by mouth twice a day as needed - morphine as needed LABORATORY DATA: White count is 15.6 on 11/24/2018, today is was 5.3, hemoglobin 8.2, hematocrit 28.3, platelets 217, 62% neutrophils, 22% lymphocytes, 5% monocytes. ESR 52. Reticulocyte count 1.1. S Sodium 140, potassium 3.7, chloride 106, bicarbonate 24, BUN 5, creatinine 0.5, glucose 87, calcium 7.6, CRP 17.3, LDH 172. Immunoglobulin level 1080, IgA 293, IgM 164. Rheumatoid factor less than 10. Complement level, C3 and C4 were normal. SHAHZAD pending. Serology: Legionella IgG pending. Urine Legionella antigen pending. Mycoplasma IgM and IgG pending. MRSA screen was negative. Pneumococcal antigen pending. EBV serology was done. HIV negative. SOCIAL HISTORY: She lives with her three children. One is in college going for physician marketing administrative assistant (PA) school. She is . She does not have any animals. No pets or dogs. No travel. No recent dog bites. Blood cultures two sets were negative on 11/24/2018. Urine culture was E-coli resistant to ampicillin and Unasyn. Respiratory panel was negative. Urinalysis had too numerous to count white cells with 28 red cells. REVIEW OF SYSTEMS: The patient has no nausea, vomiting or diarrhea. No cough or shortness of breath. No pleuritic chest pain. No upper respiratory infection. No runny nose or postnasal drip. Her only symptoms are headache which has been persistent, low back pain which has improved, and the fever. She also feels off balance. PHYSICAL EXAM Maximum temperature (T-max) today 101.1, currently 98, respirations 15, blood pressure 120/74, oxygen saturation 95% on room air, pulse 81. HEART: Normal S1, S2. No murmurs, rubs or gallops. LUNGS: Clear. No wheezes, rales or rhonchi. ABDOMEN: Soft, nontender. No hepatosplenomegaly. BACK: No costovertebral angle (CVA) or lumbosacral. EXTREMITIES: No clubbing, cyanosis or edema. No rashes. Joints nontender. HENT Neck is not stiff. Negative Brudzinski and Kernig. no adenopathy SKIN no rashes , joints no synovitis normal ROM IMAGING STUDIES: CT abdomen and pelvis showed asymmetric inflammation in the left perinephric fat suspicious for pyelonephritis. Chest x-ray done on 11/27/2018 showed inferior infiltrate in the left lung, small left pleural effusion. CT chest and abdomen showed left lower lobe, left upper lobe infiltrate, small left pleural effusion, small right lower lobe infiltrate, cholelithiasis. IMPRESSION: This is a 43-year-old female who was admitted with fever, leukocytosis and low back pain associated with a headache. She was treated for a presumptive pyelonephritis as her CT was suggestive of pyelonephritis. Urinalysis had pyuria and urine culture had Escherichia (E) coli. She clinically is somewhat improved. Her white count has normalized. Her temperature has gone from 103-101 but she still has a persistent headache. CT chest was obtained even though the patient is asymptomatic which showed fluffy infiltrates. I am not convinced this is CAP/HCAP pneumonia. She has no pulmonary symptoms at all not hypoxic no cough or SOB and I would not treat her as a pneumonia patient. PLAN: Continue with IV Rocephin. Discontinue Zithromax. Consider lumbar puncture if headache persists and fever Case has been discussed Dr. Soni who has ordered the lumbar puncture in case her fever persists tomorrow. Also would add Lyme serology although denied being outdoor or tick bites MTDD
[2018-11-27 21:30] VITALS: BP 111/73
[2018-11-28 06:00] VITALS: BP 111/79
[2018-11-28 06:51] LABS: HEMATOCRIT 31.5 % (36.0-47.0); HEMOGLOBIN 9.3 g/dl (12.0-15.5); MEAN CORPUSCULAR HEMOGLOBIN 21.7 pg (27.0-33.0); MEAN CORPUSCULAR HGB CONC 29.5 g/dl (32.0-36.5); MEAN CORPUSCULAR VOLUME 73.4 fl (80.0-96.0); PLATELET COUNT, AUTOMATED 212 10^3/uL (150-450); RED BLOOD COUNT 4.29 10^6/uL (4.00-5.40)
[2018-11-28 07:16] LABS: BASOPHILS 1 % (0-1); EOSINOPHILS 8 % (0-3); HYPOCHROMASIA 1+; LYMPHOCYTES 32 % (16-44); MONOCYTES 3 % (0-5); NEUTROPHILS 55 % (28-66); PLATELET ESTIMATE NORMAL (NORMAL)
[2018-11-28 07:17] LABS: ANISOCYTOSIS 1+; MICROCYTOSIS 1+
[2018-11-28 07:20] LABS: BLOOD UREA NITROGEN 5 MG/DL (7-18); CARBON DIOXIDE LEVEL 30 MEQ/L (21-32); CHLORIDE LEVEL 106 MEQ/L (98-107); CREATININE FOR GFR 0.54 MG/DL (0.55-1.30); GLOMERULAR FILTRATION RATE > 60.0 (>58); GLUCOSE, FASTING 74 MG/DL (70-100); POTASSIUM SERUM 3.8 MEQ/L (3.5-5.1); SODIUM LEVEL 141 MEQ/L (136-145)
[2018-11-28] MEDS: ENOXAPARIN 40 MG/0.4 ML SYRINGE (J1650) SC SCH (08:08)
[2018-11-28] MEDS: ASCORBIC ACID 500 MG TAB PO SCH ×2 (08:27→18:53)
[2018-11-28] MEDS: ACETAMINOPHEN 500 MG TAB PO SCH ×2 (08:27→20:00)
[2018-11-28] MEDS: ESCITALOPRAM OXALATE 10 MG TAB (LEXAPRO) PO SCH (08:27)
[2018-11-28] MEDS: OMEPRAZOLE 20 MG CAP PO SCH (08:28)
[2018-11-28] MEDS: FERROUS SULFATE 325MG TAB PO SCH ×2 (08:28→20:00)
[2018-11-28] MEDS ORDERED: PURE500C5 PO (10:20)
[2018-11-28] MEDS ORDERED: OMEP-218 PO (10:20)
[2018-11-28] MEDS ORDERED: CEFD300CAP PO (10:21)
[2018-11-28] MEDS ORDERED: ONDANSETRON 4 MG ORAL DISINTEGRATING TAB (Q0162 PER 1MG) PO ONE (11:00)
[2018-11-28] MEDS ORDERED: ONDANSETRON 4MG/2ML VIAL (J2405) IV PRN (11:00)
[2018-11-28] MEDS: cefTRIAXone SOD 2 GM in D5W MINI-BAG PLUS 50 ML IV SCH (11:12)
--- NOTE | 2018-11-28 11:15 | IPN ---
DATE OF SERVICE: 11/28/2018 Last maximum temperature (Tmax) was at 11:14. 100.3 and 100.6 on 11/27/2018 at 8 a.m. and 11:14 a.m. yesterday. The patient has been well during the night. Complained of a little nausea and still with a headache this morning that is generalized. The patient is currently on Tylenol 1 gram twice a day. Awaiting lumbar puncture. Vital Signs: Tmax 100.6. Current temperature is 97.9, pulse 70, respiratory rate 18, blood pressure 111/79, 97% on room air. Generally, the patient is awake, alert, oriented times three. Answering questions appropriately. She has no icterus. No jaundice. No pallor. Moist mucous membranes. No meningeal irritation. Negative Kernig and Brudzinski signs. No jugular venous distention (JVD). No thyromegaly. No cervical lymphadenopathy. Lungs: Air entry is equal bilaterally. Fine crackles at the bases. Heart: S1, S2. Sinus rhythm. Abdomen is soft, nontender, nondistended. Positive costovertebral angle (CVA) tenderness bilaterally, left greater than the right. Extremities: No cyanosis, clubbing, or pitting edema. LABORATORY DATA: White count 6, hemoglobin 9.3, hematocrit 31, platelet count 212. Sodium 141, potassium 3.8, chloride 106, bicarbonate 30, BUN 5, creatinine 0.54, glucose of 74. MICROBIOLOGY: Urine culture: Escherichia (E.) coli resistant to ampicillin, ampicillin sulbactam. Blood culture: Negative. Respiratory panel: Negative. Hemoccult stool: Negative. Sputum gram stain: Pending. CT chest: Left upper middle lobe infiltrate, small left effusion, right lower lobe infiltrate. ASSESSMENT AND PLAN: This is a 43-year-old female who presented to the emergency room with fever, flank pain. Found to have bilateral pyelonephritis. Started on intravenous (IV) ceftriaxone. Urine culture grew out Escherichia (E.) coli, which was resistant to ampicillin, ampicillin sulbactam. Since then, the patient has had recurrent fevers until 11/27/2018. IMPRESSION: 1. Acute bilateral pyelonephritis, on IV ceftriaxone. Urine culture is sensitive to ceftriaxone. Last fever was 100.6 at 8 a.m. 11/27/2018. Due to recurrent fevers, lumbar puncture was ordered. If negative, may discharge home in the morning, per Dr. Alexander, since the patient is asymptomatic from a pneumonia, no reason to treat the patient for this. 2. Abnormal CT, most likely fluid overload. No complaints of cough, shortness of breath despite having fever. No chills. No changes in antibiotics, per Dr. Alexander, continue with IV ceftriaxone for pyelonephritis. 3. Symptomatic anemia, status post 3 units red blood cell (RBC) transfusion. The patient had a fever during the transfusion but had negative transfusion reaction. The patient's hemoglobin is 9.3. She is continued on iron and vitamin C as outpatient. 4. Iron-deficiency anemia in the setting of prior gastric bypass surgery. Hemoccult stool is negative. She is on iron and vitamin C. Status post 3 units RBC transfusion. The patient requested IV iron, but it is not clinically indicated. Defer to outpatient primary care physician to refer to gastroenterology to rule out chronic gastrointestinal (GI) issues. 5. Anxiety and depression. On Atarax and Lexapro. DISPOSITION: If lumbar puncture is negative, the patient is afebrile for 24 hours, may be discharged home with outpatient followup with her primary care physician. DAVID
[2018-11-28] MEDS ORDERED: ONDANSETRON 4 MG ORAL DISINTEGRATING TAB (Q0162 PER 1MG) PO PRN (14:00)
[2018-11-28 15:26] LABS: APPEARANCE, CSF CLEAR (CLEAR); COLOR, CSF COLORLESS (COLORLESS); CSF TUBE# CELL CNT TUBE 1
[2018-11-28 15:43] LABS: CSF TUBE# GLU TUBE 2; CSF TUBE# TP TUBE 2; GLUCOSE CSF 49 MG/DL (40-75); TOTAL PROTEIN,CSF 27 MG/DL (15-45)
[2018-11-28] MEDS: MORPHINE 30 MG TAB **MSIR PO PRN (16:15)
--- NOTE | 2018-11-28 17:06 | REP ---
Procedure: Fluoro guidance for lumbar puncture. History: Headache The procedure was performed under the direct supervision of Dr. Rizo. The risks and benefits of the procedure were explained to the patient and informed consent was obtained. The L3-4 interspace was localized using fluoroscopic guidance. The skin was prepped and draped in a sterile fashion. 1% lidocaine was used as a local anesthetic. Using fluoroscopic guidance a 22-gauge spinal needle was inserted and advanced into the thecal sac. 12 ml of spinal fluid was withdrawn and sent to lab. The patient tolerated the procedure well and there were no immediate complications. Less than 6 seconds of fluoro time was utilized for this procedure. Electronically Signed by NOHELIA Ott 11/28/2018 04:49 P Electronically Signed by Donnie Rizo MD 11/28/2018 04:57 P
[2018-11-28 17:34] VITALS: BP 124/84
[2018-11-28] MEDS ORDERED: METOCLOPRAMIDE INJ 10MG/2ML VIAL (J2765) IV ONE (18:45)
[2018-11-28] MEDS ORDERED: SUMAtriptan SUCCINATE 6 MG/0.5 ML VIAL SC PRN (18:45)
[2018-11-28] MEDS ORDERED: SUMAtriptan SUCCINATE 6 MG/0.5 ML VIAL SC ONE (18:45)
[2018-11-28 22:00] VITALS: BP 100/70
[2018-11-29] MEDS: METOCLOPRAMIDE INJ 10MG/2ML VIAL (J2765) IV SCH ×2 (00:13→06:17)
[2018-11-29] MEDS ORDERED: SULF1TAB93 PO (05:04)
[2018-11-29] MEDS ORDERED: ACETAMINOPHEN TAB 650MG DOSE (2X325MG) PO PRN (05:45)
[2018-11-29 06:00] VITALS: BP 100/65
[2018-11-29 06:18] LABS: HEMOGLOBIN 9.4 g/dl (12.0-15.5); MEAN CORPUSCULAR HEMOGLOBIN 22.2 pg (27.0-33.0); MEAN CORPUSCULAR HGB CONC 30.3 g/dl (32.0-36.5); MEAN CORPUSCULAR VOLUME 73.3 fl (80.0-96.0); PLATELET COUNT, AUTOMATED 260 10^3/uL (150-450); RED BLOOD COUNT 4.23 10^6/uL (4.00-5.40); WHITE BLOOD COUNT 7.5 10^3/uL (4.0-10.0)
[2018-11-29 06:36] LABS: BLOOD UREA NITROGEN 4 MG/DL (7-18); CALCIUM LEVEL 8.4 MG/DL (8.5-10.1); CARBON DIOXIDE LEVEL 28 MEQ/L (21-32); CHLORIDE LEVEL 106 MEQ/L (98-107); CREATININE FOR GFR 0.63 MG/DL (0.55-1.30); GLOMERULAR FILTRATION RATE > 60.0 (>58); GLUCOSE, FASTING 92 MG/DL (70-100); POTASSIUM SERUM 3.9 MEQ/L (3.5-5.1); SODIUM LEVEL 140 MEQ/L (136-145)
[2018-11-29 06:54] LABS: ANISOCYTOSIS 2+; BASOPHILS 3 % (0-1); EOSINOPHILS 4 % (0-3); LYMPHOCYTES 22 % (16-44); MONOCYTES 7 % (0-5); NEUTROPHILS 64 % (28-66); PLATELET ESTIMATE NORMAL (NORMAL)
--- NOTE | 2018-11-29 07:10 | DSES ---
DATE OF ADMISSION: 11/24/2018 DATE OF DISCHARGE: 11/29/2018 PRIMARY DISCHARGE DIAGNOSES: 1. Acute pyelonephritis. 2. Recurrent fever. Lumbar puncture was negative for meningitis. 3. Symptomatic anemia status post three units red blood cell transfusion. 4. Chronic iron deficiency anemia in the setting of gastric bypass surgery. 5. Generalized weakness secondary to symptomatic anemia. 6. Anxiety and depression. 7. History of gastric bypass surgery. 8. Hypokalemia, low potassium level. DISCHARGE MEDICATIONS: - Bactrim one tablet by mouth twice a day for seven days - omeprazole 20 mg daily - vitamin C 500 daily - Tylenol 1 gram every 6 hours as needed for pain - Lexapro 20 mg daily - ferrous sulfate 325 mg by mouth twice a day - hydroxyzine 25 mg every 8 hours as needed for anxiety DISCHARGE INSTRUCTIONS: Followup with primary care physician within five days of hospital discharge. CONSULTANTS DURING THIS ADMISSION: Infectious disease specialist, Dr. Jose Alexander. HISTORY OF PRESENTING ILLNESS: This is a 43-year-old female who presented to the emergency room with complaints of bilateral back pain, fever of 103.4, aches and chills for a few days, since Tuesday prior to presentation. The patient otherwise denies nausea, vomiting, thought she may have had the flu. Complained of generalized weakness with some dyspnea on exertion and presented with a hemoglobin of 8, white count of 15,000, fever of 103. Patient was admitted for sepsis, was found to have a urinary tract infection, CT confirmed pyelonephritis. She was allergic to ibuprofen. She did receive one dose of Zosyn in the emergency room, while awaiting urine cultures. She was admitted for pyelonephritis and started intravenous ceftriaxone. Due to symptomatic anemia from chronic iron deficiency from known history of gastric bypass without overt GI bleed, the patient was given 2 units RBC transfusion. During the second unit of RBC transfusion, the patient continued to have fever of 101. At that point, the second unit was sent for transfusion reaction inquiry, which was negative. The patient had no signs of hemolysis. Despite being on IV ceftriaxone and urine culture growing out E. Coli, which was resistant to ampicillin, ampicillin sulbactam, but was sensitive to ceftriaxone, the patient continued to have recurrent fevers with T-max of 101.3, 101.7 and 100.6 four days into her admission, at which point she was evaluated with CT chest which showed bilateral infiltrates at the bases, left upper lobe and a small left pleural effusion. Despite having bilateral infiltrates, the patient did not have any cough or worsening shortness of breath after blood transfusion. She had input which was 4.5 liters in with positive balance throughout the past four days, was thought to potentially be in fluid overload. The patient's pressure remained soft at 90-100 and IV fluids were not given. Dr. Jose Alexander was consulted for evaluation. The patient was evaluated further, immunoglobulin levels were normal, compliment levels were normal, CRP and sed rate were elevated. Per Dr. Alexander, the patient underwent lumbar puncture due to complaints of headache. The patient did not have any meningeal signs. Cerebrospinal fluid final PCR was negative. She did complain of headache which was treated with Tylenol and intravenous Reglan, and did receive a dose of Imitrex with improvement. Per Dr. Alexander's recommendations, the patient was given Bactrim. The patient was discharged in stable condition. LABORATORIES ON DISCHARGE: White count 6, hemoglobin 9.3, hematocrit 31, platelet count 212, sodium 141, potassium 3.8, chloride 106, bicarb 30, BUN 5, creatinine 0.54, glucose 74. Microbiology: Blood culture negative. Respiratory panel negative. Hemoccult negative. Sputum culture pending. CSF fluid PCR negative. IMAGING STUDIES: CT chest left lower lobe, left upper lobe infiltrate, small left pleural effusion, small right lower lobe infiltrate, cholelithiasis. CT abdomen and pelvis 11/24/2018 cholelithiasis, 1 mm nonobstructing right renal calculus, pyelonephritis on the left. TIME SPENT ON DISCHARGE: 30 minutes. edited: 12/01/2018 1250 tkf MTDDi
--- NOTE | 2018-11-29 07:24 | IPN ---
DATE: 11/28/2018 Sirena had a lumbar puncture done today and now her headache is worse. She also complained of being nauseous and has no appetite today, she has not eaten to much. She had no fever today but was feeling a little chilly. No dysuria, hematuria. Low back pain has markedly improved. PHYSICAL EXAMINATION: Neck: No stiffness. No adenopathy. Heart: Normal S1-S2. No murmurs. Lungs are clear. No wheezes, rales or rhonchi. Abdomen is soft, nontender. No hepatosplenomegaly. Extremities: No clubbing, cyanosis or edema. Negative straight leg raising. Negative Brudzinski and Kernig. Temperature is 98. She has been afebrile throughout the day. Pulse 73, respirations 18, blood pressure 124/84. White count 6, hemoglobin 9.3, hematocrit 31.5, platelets 212, 55% neutrophils, 32% lymphocytes, 8% eosinophils. Sodium 141, potassium 3.8, chloride 106, bicarb 30, BUN 5, creatinine 0.54, glucose 74, calcium 8. Procalcitonin 0.75, CRP 17.3. Lyme serology is pending. Methicillin-resistant Staphylococcus aureus (MRSA) screen negative. IMPRESSION: 1. Left-sided pyelonephritis with E. coli currently on IV Rocephin day number 5. The patient will be switched to Bactrim to finish a 10-day course of treatment. 2. Headache. Negative lumbar puncture. CSF had 4 white cells, less than 2 red cells, 49 glucose and 27 total protein. No evidence of meningitis. PCR meningitis panel was negative. 3. Nausea, possibly medication related. PLAN: Zofran as needed. Discontinue IV Rocephin switched to p.o. Bactrim to finish a 10-day course. From an infectious disease standpoint the patient could be discharged home.
[2018-11-29 08:19] LABS: EBV AB TO NUCLEAR ANTIGEN >600.0 U/mL (0.0-17.9); EBV VIRAL CAPSID AG IgG >600.0 U/mL (0.0-17.9); EBV VIRAL CAPSID AG IgM <36.0 U/mL (0.0-35.9)
[2018-11-29] MEDS: ENOXAPARIN 40 MG/0.4 ML SYRINGE (J1650) SC SCH (09:00)
[2018-11-29] MEDS ORDERED: BACTRIM 160MG/800MG DS TAB PO SCH (09:00)
[2018-11-29] MEDS: ESCITALOPRAM OXALATE 10 MG TAB (LEXAPRO) PO SCH (09:11)
[2018-11-29] MEDS: ACETAMINOPHEN 500 MG TAB PO SCH (09:11)
[2018-11-29] MEDS: FERROUS SULFATE 325MG TAB PO SCH (09:11)
[2018-11-29] MEDS: ASCORBIC ACID 500 MG TAB PO SCH (09:11)
[2018-11-29] MEDS: OMEPRAZOLE 20 MG CAP PO SCH (09:12)
[2018-11-30 00:07] LABS: ANTINUCLEAR ANTIBODIES DIRECT Negative (Negative); CMV QUANT DNA PCR (PLASMA) Negative (Negative)
[2018-11-30 00:07] LABS: Lyme Disease IgG Ab 18 kDa Ban Present (.); Lyme Disease IgG Ab 23 kDa Ban Present (.); Lyme Disease IgG Ab 28 kDa Ban Absent (.); Lyme Disease IgG Ab 30 kDa Ban Absent (.); Lyme Disease IgG Ab 39 kDa Ban Absent (.); Lyme Disease IgG Ab 41 kDa Ban Present (.); Lyme Disease IgG Ab 45 kDa Ban Absent (.); Lyme Disease IgG Ab 58 kDa Ban Absent (.); Lyme Disease IgG Ab 66 kDa Ban Absent (.); Lyme Disease IgG Ab 93 kDa Ban Absent (.); Lyme Disease IgG West Blot Int Negative (.); Lyme Disease IgG/IgM Antibodie <0.91 ISR (0.00-0.90); Lyme Disease IgM Ab 23 kDa Ban Absent (.); Lyme Disease IgM Ab 39 kDa Ban Present (.); Lyme Disease IgM Ab 41 kDa Ban Absent (.); Lyme Disease IgM Ab Quantitati 1.12 index (0.00-0.79); Lyme Disease IgM West Blot Int Negative (.)
[2018-12-01 00:06] LABS: BODY FLUID CULTURE Not Indicated (.); LEGIONELLA ANTIGEN URINE Negative (Negative); ORGANISM ID Not indicated. (.); SPECIMEN SOURCE Urine (.); URINE STREP PNEUMONIAE ANTIGEN Negative (Negative)
== END 2018-11-29 11:46 | disposition home or self-care (01) | DRG 463 ==
LOC: M ED 04:06 → M ED INP 07:54 → M MSPAV 14:02
PROVIDERS: ADMIT General Practice; ATTEND General Practice
PROC: 30233N1 Transfusion of Nonautologous Red Blood Cells into Peripheral Vein, Percutaneous Approach (ICD-10-PCS; 2018-11-27)
PROC: 009U3ZX Drainage of Spinal Canal, Percutaneous Approach, Diagnostic (ICD-10-PCS; principal; 2018-11-28)
DX: N10 Acute pyelonephritis (principal); F32.9 Major depressive disorder, single episode, unspecified; E87.6 Hypokalemia; Z98.84 Bariatric surgery status; D50.9 Iron deficiency anemia, unspecified; R53.83 Other fatigue; N20.0 Calculus of kidney; B96.20 Unspecified Escherichia coli [E. coli] as the cause of diseases classified elsewhere; K80.20 Calculus of gallbladder without cholecystitis without obstruction; F41.9 Anxiety disorder, unspecified; Z90.710 Acquired absence of both cervix and uterus; Z79.899 Other long term (current) drug therapy

== ENCOUNTER → 2019-02-06 | Outpatient (REF) | payer OTHER ==
[~2019-02-06] MED LIST changes: +ACET-897 PO; +CEFD300CAP PO; +FERR1TAB8 PO; +FERR325T18; +HYDR-3363 PO; +OMEP-218 PO; +PURE500C5 PO; +SULF1TAB93 PO
[2019-02-06 20:07] LABS: BASO # 0.1 10^3/uL (0.0-0.2); BASO % 0.6 % (0.0-1.0); EOS # 0.6 10^3/uL (0.0-0.5); EOS % 7.8 % (0.0-3.0); HEMATOCRIT 36.6 % (36.0-47.0); HEMOGLOBIN 11.1 g/dl (12.0-15.5); LYMPH # 2.5 10^3/uL (1.5-5.0); LYMPH % 30.8 % (24.0-44.0); MEAN CORPUSCULAR HEMOGLOBIN 26.6 pg (27.0-33.0); MEAN CORPUSCULAR HGB CONC 30.3 g/dl (32.0-36.5); MEAN CORPUSCULAR VOLUME 87.6 fl (80.0-96.0); MONO # 0.6 10^3/uL (0.0-0.8); MONO % 7.4 % (0.0-5.0); NEUTROPHILS # 4.3 10^3/uL (1.5-8.5); NEUTROPHILS % 53.1 % (36.0-66.0); PLATELET COUNT, AUTOMATED 272 10^3/uL (150-450); RED BLOOD COUNT 4.18 10^6/uL (4.00-5.40)
[2019-02-06 20:14] LABS: PERCENT SATURATION 4.1 % (13.2-45.0)
== END ==
LOC: M SFHCLERA 17:30
PROVIDERS: ATTEND Physician Assistant
DX: E53.8 Deficiency of other specified B group vitamins (principal)

== ENCOUNTER → 2019-08-21 | Outpatient (CLI) | payer MEDICAID ==
--- NOTE | 2019-08-21 12:26 | REP ---
DIGITAL DIAGNOSTIC BILATERAL MAMMOGRAPHY WITH CAD, 3D TOMOGRAPHY, AND FOCUSED RIGHT BREAST SONOGRAPHY: HISTORY: Palpable lump in the right breast for 3 years, recently painful. FINDINGS: Routine views are augmented by magnified focal spot compression images. Breast parenchyma is heterogeneously dense in a pattern which may inhibit the sensitivity of mammography. A skin marker is affixed to the skin at the site of the palpable lump and this projects in the superior medial quadrant on the right side. No dominant density is seen here or elsewhere in either breast mammographically. No spiculation or architectural distortion is seen. No microcalcification or worrisome skin change is seen mammographically. SONOGRAPHIC FINDINGS: Scanning through the superior medial aspect of the right breast in the area the patient's palpable lump demonstrates heterogeneous fibroglandular background echotexture. No mass lesion is seen. No cyst is observed. No suspicious acoustic shadowing is seen. IMPRESSION: BIRADS 1: BI-RADS/ACR category 1 mammogram. Negative Mammogram. BIRADS category 1 negative findings. Clinical followup is advised. This mammogram was interpreted with the aid of an FDA-approved computer-aided detection system. The patient states that she/he has not had a clinical breast exam in over a year. The patient letter being requested is m#[id number] . This patient's estimated Tyrer-Cuzick lifetime risk assessment for breast cancer is 10.7 %.
== END ==
LOC: M WHC 09:45
PROVIDERS: ATTEND Family Medicine
DX: N60.31 Fibrosclerosis of right breast (principal)
CPT/HCPCS: 76642; 77066; G0279

== ENCOUNTER → 2020-04-26 | Outpatient (CLI) | payer MEDICAID, OTHER | LOC: M LABSMTC 10:21 | PROVIDERS: ATTEND Anesthesiology | DX: Z01.812 Encounter for preprocedural laboratory examination (principal); Z20.822 Contact with and (suspected) exposure to COVID-19 ==

== ENCOUNTER → 2020-04-29 | Outpatient (CLI) | payer OTHER ==
[2020-04-29 20:11] LABS: BASO # 0.1 10^3/uL (0.0-0.2); BASO % 0.7 % (0.0-1.0); EOS # 0.3 10^3/uL (0.0-0.5); EOS % 3.6 % (0.0-3.0); HEMATOCRIT 38.1 % (36.0-47.0); HEMOGLOBIN 11.1 g/dl (12.0-15.5); LYMPH # 1.7 10^3/uL (1.5-5.0); LYMPH % 23.4 % (24.0-44.0); MEAN CORPUSCULAR HEMOGLOBIN 25.8 pg (27.0-33.0); MEAN CORPUSCULAR HGB CONC 29.1 g/dl (32.0-36.5); MEAN CORPUSCULAR VOLUME 88.6 fl (80.0-96.0); MONO # 0.5 10^3/uL (0.0-0.8); MONO % 6.6 % (2.0-8.0); NEUTROPHILS # 4.7 10^3/uL (1.5-8.5); NEUTROPHILS % 65.4 % (36.0-66.0); PLATELET COUNT, AUTOMATED 265 10^3/uL (150-450); WHITE BLOOD COUNT 7.1 10^3/uL (4.0-10.0)
[2020-04-29 20:31] LABS: BLOOD UREA NITROGEN 10 MG/DL (7-18); CARBON DIOXIDE LEVEL 28 MEQ/L (21-32); CHLORIDE LEVEL 106 MEQ/L (98-107); GLOMERULAR FILTRATION RATE > 60.0 (>58); GLUCOSE, FASTING 76 MG/DL (70-100); POTASSIUM SERUM 3.9 MEQ/L (3.5-5.1); SODIUM LEVEL 139 MEQ/L (136-145)
== END ==
LOC: M WUC 15:07
PROVIDERS: ATTEND Family Medicine
DX: Z01.818 Encounter for other preprocedural examination (principal)

== ENCOUNTER 2020-05-01 12:46 | Day surgery (SDC) | payer OTHER ==
[~2020-05-01] VITALS: Ht 162.6 cm; Wt 68.0 kg
[~2020-05-01 12:46] MED LIST changes: +ACETAMINOPHEN 1000MG 100ML IV BTL (OFIRMEV) (J0131 PER 10MG) As Ordered ONE; +BACITRACIN PWD 50,000 UNITS VIAL As Ordered ONE; +BUPIVACAINE LIPOSOME/PF 1.3% 20ML VIAL (13.3MG/ML)(EXPAREL)(C9290 PER1MG) As Ordered ONE; +HYDROmorphone HCL 2 MG/ML 1ML VIAL (J1170) As Ordered ONE; +LIDOCAINE 1% MDV 20ML VIAL SQ PRN; +LIDOCAINE 2% 100MG/5ML SDV (FOR ANES.) As Ordered ONE; +LR 1,000 ML IV ONE; +MIDAZOLAM INJ 2MG/2ML VIAL (J2250 PER 1MG) As Ordered ONE; +ONDANSETRON 4MG/2ML VIAL As Ordered ONE; +ROCURONIUM BROMIDE 50 MG/5 ML VIAL As Ordered ONE; +SUGAMMADEX SODIUM 500 MG/5 ML VIAL (BRIDION) As Ordered ONE; +ceFAZolin SOD 1 GM in D5W MINI-BAG PLUS 50 ML IV ONE; +dexameTHASONE 4 MG/ML 1ML VIAL (J1100 PER 1MG) As Ordered ONE; +fentaNYL 100 MCG/2 ML INJECTION (J3010) As Ordered ONE; +propofoL 200 MG/20 ML VIAL As Ordered ONE
--- NOTE | 2020-05-01 16:25 | POST-OPPD ---
Postoperative Procedure Note Date Of Procedure: May 01, 2020 PREOPERATIVE DIAGNOSIS: Panniculitis POSTOPERATIVE DIAGNOSIS: same FINDINGS: pannus above and below umbilicus PROCEDURE: Extended panniculectomy Nuria de Lis approach with rectus muscle plication. SURGEON: Dr Ferguson COGNOS ANALYST: Dr Hassan ANESTHESIA: general SPECIMENS: Pannus 1346 gm ESTIMATED BLOOD LOSS: 75cc REPLACED: none DRAINS: 10 mm NURY x 2 COMPLICATIONS: none POSTOPERATIVE CONDITION: stable ESTELITA FERGUSON DO May 01, 2020 16:25
--- NOTE | 2020-05-01 16:26 | ROOPDOC ---
[facility] Report Of Operation Report of Operation DATE OF PROCEDURE: 05/01/20 PREOPERATIVE DIAGNOSIS: Panniculitis POSTOPERATIVE DIAGNOSIS: same FINDINGS: pannus above and below umbilicus PROCEDURE: Extended panniculectomy Nuria de Lis approach with rectus muscle plication. SURGEON: Dr Ferguson RUBBER CUTTER: Dr Hassan ANESTHESIA: general SPECIMENS: Pannus 1346 gm ESTIMATED BLOOD LOSS: 75cc REPLACED: none DRAINS: 10 mm NURY x 2 COMPLICATIONS: none POSTOPERATIVE CONDITION: stable Procedure: This is a 44-year-old female status post significant weight loss status post gastric bypass. Patient has excessive pannus above and mostly below the umbilicus with mons pubis ptosis and rectus muscle diathesis. Patient is scheduled for extended panniculectomy with possible rectus muscle plication Nuria de Lis approach. Risks benefits and alternatives discussed with the patient in details. Informed consent confirmed and preoperative holding area. Patient was marked in upright position. She was brought into the operating room, placed in supine position, preoperative antibiotics given, sequential stockings placed in the lower calves, and then general anesthesia is induced. Crowell catheter introduced in the bladder without any difficulties with yellow clear urine present. She was prepped and draped in the usual sterile fashion.Lower abdominal incision made 7 cm above the labial crease along patient's natural suprapubic crease. Incision carried out with 10 blade. Careful sharp dissection with electrocautery and PEEK cautery was done until the fascia of rectus muscle is identified. Following the musculoaponeurotic fascial plane superiorly, the abdominal skin and subcutaneous tissue are undermined. Vessels were identified throughout and either cauterized or suture ligated for hemostasis control. Infraumbilical flap was divided in the middle to aid the dissection. We continued our dissection until umbilicus was encountered. Rhomboid incision made around the umbilicus and dissection continued until xiphoid process superiorly and costal margins laterally. Rectus muscle evaluated and diathesis was identified 7 cm width at midline. Rectus muscle was plicated with 0 Vicryl sutures in interrupted fashion, followed by #1 PDS running locked suture. Wound is irrigated with bacitracin and normal saline irrigation. Exparel block given into rectus muscle total 16 mL. Patient placed on placed in the reflex position and excess tissue which consists off abdominal skin and subcutaneous tissue was measured and resected using electrocautery. Patient had significant skin excess in midportion of abdomen therefore [id number] approach was taken to pannus resection. Total weight of the pannus 1346 g. Careful hemostasis was assured. The flap was realigned and tacked with clamps. We started closure of the midline incision with deep sutures of 0 Vicryl. Subcutaneous layer closure with 3-0 Monocryl sutures and Inosorb reba, than 3-0 Monocryl V lock suture used for subdermal closure. The mons pubis was realigned. We continued closing the lower abdominal incision with 0 Vicryl sutures for deep layer, followed by 3-0 Monocryl sutures for subcutaneous layer and Inosorb reba, than 3-0 Monocryl V lock suture used for subdermal closure. Two10 mm Jordan-Larsen drains were placed through lower abdominal incision and secured in place with 3-0 Monocryl sutures. New opening was created for the umbilical stump using electrocautery. The umbilicus was brought into view and sutured in place with interrupted 3-Monocryl, 4-0 Monocryl sutures and 5-0 plain gut sutures in the interrupted fashion. Dr Hassan was instrumental in helping controlling hemostasis, realigning of the flaps and assisting in closure of the incisions. Remaining Exparel was given into the lower abdominal incision and the drain area. Prinio dressing applied to lower abdominal incision, Xeroform to umbilicus, and bulky dressing throughout. Abdominal binder applied. Patient extubated in the operating room without any difficulties and transferred to recovery room in stable condition. ESTELITA FERGUSON DO May 01, 2020 16:26
[2020-05-01] MEDS ORDERED: ACETAMINOPHEN TAB 650MG DOSE (2X325MG) PO PRN (16:30)
[2020-05-01] MEDS ORDERED: MORPHINE 4 MG/ML 1ML VIAL/SYRINGE (J2270) IV PRN (16:30)
[2020-05-01] MEDS ORDERED: ONDANSETRON 4MG/2ML VIAL IV PRN ×2 (16:30→16:40)
[2020-05-01] MEDS ORDERED: LR 1,000 ML IV SCH (16:40)
[2020-05-01] MEDS ORDERED: hydrOXYzine 25 MG TAB PO PRN (16:40)
[2020-05-01] MEDS ORDERED: METOCLOPRAMIDE INJ 10MG/2ML VIAL (J2765 PER 1) IV PRN (16:40)
[2020-05-01] MEDS: oxyCODONE 5MG TAB PO PRN ×2 (16:47→17:23)
[2020-05-01] MEDS: fentaNYL 100 MCG/2 ML INJECTION (J3010) IV PRN ×4 (16:47→17:02)
[2020-05-01] MEDS: HYDROMORPHONE HCL 0.5 MG/ 0.5 ML SYRINGE (J1170 PER 1) IV PRN ×4 (17:06→17:37)
[2020-05-01 18:45] VITALS: BP 137/74
[2020-05-01] MEDS: LR 1,000 ML IV SCH (19:03)
[2020-05-01 19:07] VITALS: BP 117/68
[2020-05-01 20:29] VITALS: BP 118/69
[2020-05-01] MEDS: ceFAZolin SOD 1 GM in D5W MINI-BAG PLUS 50 ML IV SCH (20:34)
[2020-05-01] MEDS ORDERED: AMITRIPTYLINE 10MG TABLET PO SCH (21:00)
[2020-05-01 21:35] VITALS: BP 118/68
[2020-05-01] MEDS: PERCOCET 5MG/325MG TAB PO PRN (23:33)
[2020-05-02 02:00] VITALS: BP 119/72
[2020-05-02] MEDS: ceFAZolin SOD 1 GM in D5W MINI-BAG PLUS 50 ML IV SCH ×2 (05:27→13:16)
[2020-05-02] MEDS: PERCOCET 5MG/325MG TAB PO PRN ×3 (05:46→14:57)
[2020-05-02 06:00] VITALS: BP 120/79
[2020-05-02] MEDS ORDERED: ESCITALOPRAM OXALATE 10 MG TAB (LEXAPRO) PO SCH (09:00)
[2020-05-02] MEDS: LR 1,000 ML IV SCH (09:21)
[2020-05-02 10:00] VITALS: BP 117/78
--- NOTE | 2020-05-02 13:30 | IPNPDOC ---
Subjective General Date Seen: May 02, 2020 Subject Chief Complaint/History The patient is a 44-year-old female admitted with a reason for visit of Panniculitis. Patient s/p extended panniculectomy with rectus muscle plication Nuria de Lis approach POD 1. Doing well. Tolerated diet, pain controlled with Percocet. Ambulating. Current Medications Current Medications Current Medications Medications (Trade) Dose Ordered Sig/Irina Route PRN Reason Start Time Stop Time Status Last Admin Dose Admin Acetaminophen (Tylenol Tab) 650 mg Q6H PRN PO MILD PAIN (PS 1-4) 05/01/20 16:30 Amitriptyline HCl (Elavil) 10 mg QHS PO 05/01/20 21:00 05/01/20 18:49 DC Cefazolin Sodium 1 gm/Dextrose 50 ml @ 100 mls/hr Q8H IV 05/01/20 21:30 05/02/20 13:16 Escitalopram Oxalate (Lexapro) 20 mg DAILY PO 05/02/20 09:00 05/01/20 18:49 DC Fentanyl Citrate (Sublimaze) 25 mcg Q5MP PRN IV PAIN LEVEL 5-10 05/01/20 16:40 05/01/20 17:04 DC 05/01/20 17:02 Home Med (Med Rec Complete!) ASDIRECTED XX 05/01/20 18:50 05/01/20 18:57 DC Hydromorphone HCl (Dilaudid) 0.5 mg Q5MP PRN IV PAIN LEVEL 4-7 05/01/20 16:40 05/01/20 17:37 DC 05/01/20 17:37 Hydroxyzine HCl (Atarax) 25 mg Q8HP PRN PO ANXIETY 05/01/20 16:40 05/01/20 18:49 DC Lactated Ringer's 1,000 ml @ 75 mls/hr [id number] IV 05/01/20 16:26 05/01/20 19:03 Lactated Ringer's 1,000 ml @ 100 mls/hr Q10H IV 05/01/20 16:40 05/01/20 17:40 DC Lidocaine HCl (LIDOCAINE 1% MDV 20ml) 0.1 ml ONCE PRN SQ DISCOMFORT BEFORE IV START 05/01/20 06:00 05/01/20 16:35 DC Metoclopramide HCl (REGLAN INJection) 10 mg Q6HP PRN IV NAUSEA OR VOMITING 05/01/20 16:40 05/01/20 17:23 DC 05/01/20 17:23 Morphine Sulfate (Morphine Sulfate Inj) 4 mg Q4HP PRN IV SEVERE PAIN (PS 8-10) 05/01/20 16:30 Ondansetron HCl (ZOFRAN INJection) 4 mg Q4H PRN IV NAUSEA OR VOMITING 05/01/20 16:30 05/01/20 17:37 Ondansetron HCl (ZOFRAN INJection) 4 mg Q4HP PRN IV NAUSEA OR VOMITING 05/01/20 16:40 05/01/20 17:40 DC Oxycodone HCl (Roxicodone, Oxyir) 5 mg ASDIRECTED PRN PO PAIN LEVEL 1-4 05/01/20 16:40 05/01/20 17:23 DC 05/01/20 17:23 Oxycodone/ Acetaminophen (Percocet 5mg/ 325mg Tablet) 2 tab Q4HP PRN PO PAIN LEVEL 5-7 05/01/20 16:30 05/02/20 09:47 Allergies Coded Allergies: levofloxacin (Verified Allergy, Intermediate, 04/24/20) HIVES ibuprofen (Verified Allergy, Unknown, 04/24/20) HAD GASTRIC BYPASS Objective Physical Examination Examination GENERAL APPEARANCE:Patient seen, laying in bed, awake, alert, and oriented. Comfortable, in no acute distress. SKIN: Warm and moist. NECK: Supple, no thyromegaly. No obvious jugular venous distention. LUNGS: Clear to auscultation bilaterally. No wheezing appreciated. HEART: No chest wall abnormalities. Regular rate and rhythm with no murmurs appreciated. ABDOMEN: Abdomen is soft, non-tender, non-distended. Incision intact. Umbilicus viable. NURY drains with serosanguinous drainage. 10/20 cc/24hr each drain. EXTREMITIES: No edema identified. No calf tenderness. Vital Signs Vital Signs Date Time Temp Pulse Resp B/P (MAP) Pulse Ox O2 Delivery O2 Flow Rate FiO2 05/02/20 10:17 16 Nasal Cannula 05/02/20 10:00 98.6 86 117/78 (91) 95 2.0 I&Os I&O- Last 24 Hours up to 6 AM 05/02/20 06:00 Intake Total 2600 ml Output Total 545 ml Balance 2055 ml Impression Panniculitis. S/p Extended panniculectomy with rectus muscle plication, Nuria de Lis approach. Stable for discharge Instructions given. Dressings changed. F/up plastic surgery. Plan / VTE VTE Prophylaxis Ordered?: Yes ESTELITA FERGUSON DO May 02, 2020 13:30
[2020-05-02] MEDS ORDERED: PERCOCET PO (13:33)
[2020-05-02 14:00] VITALS: BP 125/83
== END 2020-05-02 16:41 | disposition home or self-care (01) ==
LOC: M SDC 12:46 → M MS5PR 18:40 → M SDC 05-02 16:41
PROVIDERS: ATTEND Plastic Surgery Surgery of the Hand
DX: M54.07 Panniculitis affecting regions of neck and back, lumbosacral region (principal); L98.7 Excessive and redundant skin and subcutaneous tissue; Z98.84 Bariatric surgery status; D64.9 Anemia, unspecified; Z88.1 Allergy status to other antibiotic agents
CPT/HCPCS: 15830; 15847; 36415; 86850; 86900; 86901; 88300; 96365; 96366; C9290; J0131; J0690; J1100; J1170; J2250; J2405; J2765; J3010

== ENCOUNTER → 2020-07-31 | Outpatient (CLI) | payer OTHER ==
[~2020-07-31] MED LIST changes: -ACETAMINOPHEN 1000MG 100ML IV BTL (OFIRMEV) (J0131 PER 10MG) As Ordered ONE; -BACITRACIN PWD 50,000 UNITS VIAL As Ordered ONE; +BACTDSTA PO; -BUPIVACAINE LIPOSOME/PF 1.3% 20ML VIAL (13.3MG/ML)(EXPAREL)(C9290 PER1MG) As Ordered ONE; -HYDROmorphone HCL 2 MG/ML 1ML VIAL (J1170) As Ordered ONE; -LIDOCAINE 1% MDV 20ML VIAL SQ PRN; -LIDOCAINE 2% 100MG/5ML SDV (FOR ANES.) As Ordered ONE; -LR 1,000 ML IV ONE; -MIDAZOLAM INJ 2MG/2ML VIAL (J2250 PER 1MG) As Ordered ONE; -ONDANSETRON 4MG/2ML VIAL As Ordered ONE; -ROCURONIUM BROMIDE 50 MG/5 ML VIAL As Ordered ONE; -SUGAMMADEX SODIUM 500 MG/5 ML VIAL (BRIDION) As Ordered ONE; -SULF1TAB93 PO; -ceFAZolin SOD 1 GM in D5W MINI-BAG PLUS 50 ML IV ONE; -dexameTHASONE 4 MG/ML 1ML VIAL (J1100 PER 1MG) As Ordered ONE; -fentaNYL 100 MCG/2 ML INJECTION (J3010) As Ordered ONE; -propofoL 200 MG/20 ML VIAL As Ordered ONE
--- NOTE | 2020-07-31 11:49 | REP ---
INDICATION: PAIN. COMPARISON: None. TECHNIQUE: Two views left hip. FINDINGS: No evidence of acute fracture, dislocation or intrinsic bone disease. Metallic clip is seen in the pelvis. IMPRESSION: Negative left hip series. <Electronically signed by Josh Grant > 07/31/20 0989
== END ==
LOC: M WUC 11:30
PROVIDERS: ATTEND Nurse Practitioner Family
DX: M25.552 Pain in left hip (principal)

== ENCOUNTER → 2020-12-10 | Outpatient (CLI) | payer OTHER ==
--- NOTE | 2020-12-10 09:09 | REPMRS ---
Patient History The patient states she has not had a clinical breast exam in over a year. No known family history of cancer. Tomosynthesis is performed. Volpara breast density is c. Tyrer-zick lifetime risk of breast cancer 10.4%. Indicated problem(s): bilateral pain (global) for 12 months. Patient states bilat breast pain for one year Diagnostic Bilateral Mammo: December 10, 2020 - Exam #: [id number] Bilateral CC and MLO view(s) were taken. Technologist: Lizzie Brush, Technologist Prior study comparison: August 21, 2019, diagnostic bilateral mammo performed at [facility]. FINDINGS: The breast tissue is heterogeneously dense. This may lower the sensitivity of mammography. There has been no change in the appearance of the mammogram from the prior studies. There is a moderate amount of residual fibroglandular tissue which is fairly symmetric. There is no interval development of dominant mass, areas of architectural distortion, or clustered microcalcification typical of malignancy. Assessment: BI-RADS/ACR category 1 mammogram. Negative Mammogram. Recommendation Routine screening mammogram in 1 year (for women over age 40). This mammogram was interpreted with the aid of an FDA-approved computer-aided dectection system. Electronically Signed By: Josh Grant MD 12/10/20 0921
== END ==
LOC: M WHC 07:53
PROVIDERS: ATTEND Family Medicine
DX: Z12.31 Encounter for screening mammogram for malignant neoplasm of breast (principal); N64.4 Mastodynia
CPT/HCPCS: 77066; G0279

== ENCOUNTER → 2020-12-15 | Outpatient (CLI) | payer OTHER ==
[2020-12-15 10:37] LABS: BASO % 0.6 % (0.0-1.0); EOS # 0.3 10^3/uL (0.0-0.5); EOS % 6.2 % (0.0-3.0); HEMATOCRIT 40.1 % (36.0-47.0); HEMOGLOBIN 11.7 g/dl (12.0-15.5); LYMPH # 0.9 10^3/uL (1.5-5.0); LYMPH % 18.6 % (24.0-44.0); MEAN CORPUSCULAR HEMOGLOBIN 23.4 pg (27.0-33.0); MEAN CORPUSCULAR HGB CONC 29.2 g/dl (32.0-36.5); MONO # 0.4 10^3/uL (0.0-0.8); MONO % 7.9 % (2.0-8.0); NEUTROPHILS # 3.1 10^3/uL (1.5-8.5); NEUTROPHILS % 66.3 % (36.0-66.0); PLATELET COUNT, AUTOMATED 275 10^3/uL (150-450); RED BLOOD COUNT 5.01 10^6/uL (4.00-5.40); WHITE BLOOD COUNT 4.7 10^3/uL (4.0-10.0)
[2020-12-15 11:10] LABS: ALBUMIN 3.8 GM/DL (3.2-5.2); ALT/SGPT 21 U/L (12-78); BILIRUBIN,TOTAL 0.3 MG/DL (0.2-1.0); BLOOD UREA NITROGEN 12 MG/DL (7-18); CALCIUM LEVEL 8.6 MG/DL (8.5-10.1); CARBON DIOXIDE LEVEL 29 MEQ/L (21-32); CHLORIDE LEVEL 109 MEQ/L (98-107); CREATININE FOR GFR 0.76 MG/DL (0.55-1.30); GLOMERULAR FILTRATION RATE > 60.0 (>58); GLUCOSE, FASTING 77 MG/DL (70-100); POTASSIUM SERUM 3.3 MEQ/L (3.5-5.1); SODIUM LEVEL 141 MEQ/L (136-145); TOTAL PROTEIN 7.6 GM/DL (6.4-8.2)
== END ==
LOC: M WUC 08:58
PROVIDERS: ATTEND Physician Assistant
DX: R19.7 Diarrhea, unspecified (principal); R68.83 Chills (without fever)

== ENCOUNTER → 2021-01-21 | Outpatient (CLI) | payer OTHER ==
[~2021-01-21] MED LIST changes: +OMEP-173 PO; -OMEP-218 PO; +PROHANCE 279.3MG/ML 15ML VIAL ONE
== END ==
LOC: M PLAIMG 10:36
PROVIDERS: ATTEND Family Medicine
DX: D35.02 Benign neoplasm of left adrenal gland (principal)

== ENCOUNTER → 2021-02-04 | Outpatient (CLI) | payer OTHER ==
[~2021-02-04] MED LIST changes: -OMEP-173 PO; +OMEP-218 PO; -PROHANCE 279.3MG/ML 15ML VIAL ONE
--- NOTE | 2021-02-05 13:06 | ECHO ---
ECHOCARDIOGRAM DATE OF PROCEDURE: 02/04/2021 Age: 45 Gender: Female Height: 64 inches Weight: 145 pounds Body surface area: 1.71 m2 Outpatient. REFERRING PHYSICIAN: Erasmo Danielle M.D. INDICATION: Heart murmur. MEASUREMENTS: 2D Measurements: RV - 2.7 cm LV - 4.0 cm Septum 0.8 cm Posterior wall 0.8 cm Aortic root 3.0 cm LA 3.8 cm LVEF 70% Doppler Measurements: AV - 1.2 m/s LVOT - 1.1 m/s LVOT diameter 1.9 cm MV-E 85, A 54, E/A ratio 1.6 Early mitral deceleration time 229 msec E prime medial 9.7 A prime medial 9 E prime lateral 11.9 PV 0.9 m/s Pulmonary artery acceleration time 160 msec PASP - 12 mmHg IVC - 1.9 cm COMMENTS: Normal sinus rhythm/sinus bradycardia without intraventricular conduction disturbance. M-mode and 2-dimensional echocardiography was performed with pulse, continuous wave, color flow, and tissue Doppler studies. Normal left ventricular size, wall thickness, and hyperkinetic wall motion. Normal left atrial size and Doppler assessment of LV diastolic function and estimated mean left atrial pressure. Normal right heart chamber sizes and motion and estimated pulmonary arterial pressure. Normal IVC size and collapse against an elevated central venous pressure. Normal aortic dimensions. Three equal-sized aortic cusps with normal cusp separation and no insufficiency. Normal-appearing mitral valvular apparatus and leaflet excursion with no posterior systolic buckling. Trace mitral insufficiency (physiologic). Normal-appearing tricuspid valve with mild insufficiency. No apparent intracardiac mass or pericardial effusion.
== END ==
LOC: M CARPUL 06:22
PROVIDERS: ATTEND Student in an Organized Health Care Education/Training Program
DX: R01.1 Cardiac murmur, unspecified (principal)

== ENCOUNTER → 2021-02-04 | Outpatient (CLI) | payer OTHER ==
--- NOTE | 2021-02-04 15:50 | REPVR ---
PROCEDURE INFORMATION: Exam: MR Lumbar Spine Without Contrast Exam date and time: 02/04/2021 7:42 AM Age: 45 years old Clinical indication: Low back pain; Additional info: Disc degeneration TECHNIQUE: Imaging protocol: Multiplanar magnetic resonance images of the lumbar spine without intravenous contrast. COMPARISON: CR SPINE LS COMPLETE 03/16/2017 11:29 AM FINDINGS: Vertebrae: Anatomic alignment. No acute fracture seen. Spinal cord: The conus medullaris ends normally. Disc desiccation with minimal disc height loss from L2-L3 through L4-L5. L1-L2: No significant disc disease. No significant spinal canal stenosis. No neural foraminal stenosis. L2-L3: Mild disc bulge and facet arthropathy. High-intensity zone in midline posterior disc margin without a focal disc protrusion or extrusion. No stenoses. L3-L4: Slight disc bulge and mild facet arthropathy. Subtle high-intensity zone in left paracentral disc margin without focal disc protrusion or extrusion. No stenoses. L4-L5: Moderate facet arthropathy with facet joint effusions as well as mild disc bulge. The central spinal canal remains patent. Mild bilateral neural foraminal stenoses. L5-S1: Moderate facet arthropathy. No stenoses. Soft tissues: Nonspecific edema in the back subcutaneous fat, potentially dependent/positional. IMPRESSION: 1. Mild disc degeneration from L2-L3 through L4-L5. 2. [id number] lumbar facet arthropathy, in particular L4-L5 level. 3. Mild bilateral neural foraminal stenoses at L4-L5. Electronically signed by: Ying Rivera On 02/04/2021 15:50:13 PM
== END ==
LOC: M RAD 06:19
PROVIDERS: ATTEND Orthopaedic Surgery
DX: M51.36 Other intervertebral disc degeneration, lumbar region (principal)

== ENCOUNTER 2021-05-18 15:27 | Emergency (ER) | payer OTHER ==
[~2021-05-18] VITALS: Ht 162.6 cm; Wt 71.4 kg
[~2021-05-18 15:27] MED LIST changes: +OMEP-173 PO; -OMEP-218 PO
[2021-05-18] MEDS ORDERED: GABA-1171 (15:36)
[2021-05-18] MEDS ORDERED: AMIT75TA (15:36)
[2021-05-18] MEDS ORDERED: GI COCKTAIL 50ML BTL(HYOSCYAMINE/MAALOX/LIDOCAINE VISCOUS)(1:3:1) PO ONE (16:50)
[2021-05-18 17:50] LABS: INR 1.02; PARTIAL THROMBOPLASTIN TIME 22.3 SECONDS (25.9-37.0); PROTHROMBIN TIME 13.8 SECONDS (12.7-14.5)
[2021-05-18 17:59] LABS: CK-MB VALUE MASS 1.2 NG/ML (<3.6); CPK CREATINE PHOSPHOKINASE 73 U/L (26-192); MB/CK RELATIVE INDEX 1.64 (< OR =4)
[2021-05-18 18:13] LABS: ALBUMIN 3.8 GM/DL (3.2-5.2); ALT/SGPT 24 U/L (12-78); BILIRUBIN,DIRECT < 0.1 MG/DL (0.0-0.2); BILIRUBIN,TOTAL 0.4 MG/DL (0.2-1.0); BLOOD UREA NITROGEN 8 MG/DL (7-18); CALCIUM LEVEL 8.5 MG/DL (8.5-10.1); CARBON DIOXIDE LEVEL 28 MEQ/L (21-32); CHLORIDE LEVEL 108 MEQ/L (98-107); CREATININE FOR GFR 0.52 MG/DL (0.55-1.30); GLOMERULAR FILTRATION RATE > 60.0 (>58); GLUCOSE, FASTING 73 MG/DL (70-100); HCG, SERUM QUALITATIVE NEGATIVE (NEGATIVE); NT-PRO BNP 72 PG/ML (<125); POTASSIUM SERUM 4.6 MEQ/L (3.5-5.1); SODIUM LEVEL 139 MEQ/L (136-145); TOTAL PROTEIN 7.3 GM/DL (6.4-8.2)
[2021-05-18 18:51] LABS: BASO % 0.5 % (0.0-1.0); EOS # 0.4 10^3/uL (0.0-0.5); EOS % 6.1 % (0.0-3.0); HEMATOCRIT 32.1 % (36.0-47.0); HEMOGLOBIN 9.5 g/dl (12.0-15.5); LYMPH % 33.1 % (24.0-44.0); MEAN CORPUSCULAR HEMOGLOBIN 24.1 pg (27.0-33.0); MEAN CORPUSCULAR HGB CONC 29.6 g/dl (32.0-36.5); MEAN CORPUSCULAR VOLUME 81.3 fl (80.0-96.0); MONO # 0.4 10^3/uL (0.0-0.8); MONO % 6.4 % (2.0-8.0); NEUTROPHILS # 3.3 10^3/uL (1.5-8.5); NEUTROPHILS % 53.7 % (36.0-66.0); PLATELET COUNT, AUTOMATED 197 10^3/uL (150-450); RED BLOOD COUNT 3.95 10^6/uL (4.00-5.40); WHITE BLOOD COUNT 6.1 10^3/uL (4.0-10.0)
[2021-05-18] MEDS ORDERED: ISOVUE-370 76% 100ML VIAL As Ordered ONE (19:07)
[2021-05-18 19:15] LABS: CPK CREATINE PHOSPHOKINASE 46 U/L (26-192); MB/CK RELATIVE INDEX 2.17 (< OR =4)
[2021-05-18] MEDS ORDERED: PRED20TA PO (20:17)
[2021-05-18 20:32] VITALS: BP 148/95
== END 2021-05-18 20:35 | disposition home or self-care (01) ==
LOC: M ED 15:27
DX: R07.89 Other chest pain (principal); J45.909 Unspecified asthma, uncomplicated; F33.9 Major depressive disorder, recurrent, unspecified; D64.9 Anemia, unspecified; K21.9 Gastro-esophageal reflux disease without esophagitis; Z79.899 Other long term (current) drug therapy; Z88.1 Allergy status to other antibiotic agents; Z88.8 Allergy status to other drugs, medicaments and biological substances
CPT/HCPCS: 36415; 71045; 71275; 80048; 80076; 82550; 82553; 83880; 84443; 84703; 85025; 85610; 85730; 93005; 93041; 94760; 99285; Q9967

== ENCOUNTER → 2021-07-01 | Outpatient (REF) | payer OTHER ==
[~2021-07-01] MED LIST changes: +AMIT75TA; +GABA-1171; +PRED20TA PO
== END ==
LOC: M SFHCLERA 11:23
PROVIDERS: ATTEND Family Medicine
DX: R05.9 Cough, unspecified (principal)

== ENCOUNTER → 2021-08-17 | Outpatient (REF) | payer OTHER ==
[2021-08-17 17:00] LABS: APPEARANCE, URINE CLOUDY (CLEAR); BACTERIA, URINE AUTO 2+ (NEGATIVE); BILIRUBIN, URINE AUTO NEGATIVE (NEGATIVE); BLOOD, URINE BLOOD 3+ (NEGATIVE); COLOR, URINE AMBER (YELLOW); GLUCOSE, URINE (UA) AUTO NEGATIVE (NEGATIVE); KETONE, URINE AUTO TRACE mg/dL (NEGATIVE); LEUKOCYTE ESTERASE, URINE AUTO 1+ (NEGATIVE); MUCUS, URINE SMALL (NEGATIVE); NITRITE, URINE AUTO NEGATIVE (NEGATIVE); PROTEIN, URINE AUTO 2+ mg/dL (NEGATIVE); RBC, URINE AUTO TNTC /HPF (0-3); SPECIFIC GRAVITY URINE AUTO 1.015 (1.002-1.035); SQUAMOUS EPITHELIAL CELL UR AU 3 /HPF (0-6); WBC, URINE AUTO 86 /HPF (0-3)
== END ==
LOC: M LAB REF 16:26
PROVIDERS: ATTEND Physician Assistant Medical
DX: N39.0 Urinary tract infection, site not specified (principal)

== ENCOUNTER → 2021-10-12 | Outpatient (REF) | payer OTHER ==
[2021-10-12 19:10] LABS: APPEARANCE, URINE MANUAL HAZY (CLEAR); COLOR, URINE MANUAL YELLOW (YELLOW)
[2021-10-12 19:11] LABS: GLUCOSE, URINE (UA) MANUAL NEGATIVE (NEGATIVE); KETONE, URINE MANUAL NEGATIVE (NEGATIVE); PROTEIN, URINE MANUAL 1+ mg/dL (NEGATIVE)
[2021-10-12 19:12] LABS: BILIRUBIN, URINE MANUAL NEGATIVE (NEGATIVE); BLOOD URINE MANUAL NEGATIVE (NEGATIVE); LEUKOCYTE ESTERASE, URINE MAN TRACE (NEGATIVE); NITRITE, URINE MANUAL NEGATIVE (NEGATIVE); UROBILINOGEN, URINE MANUAL 4 MG mg/dl (NORMAL)
[2021-10-12 19:20] LABS: BACTERIA, URINE LARGE AMOUNT; HYALINE CAST, URINE NONE SEEN /lpf (0-1); SQUAMOUS EPITHELIAL CELL URINE SMALL AMOUNT /hpf (SMALL AMT)
== END ==
LOC: M LAB REF 16:12
PROVIDERS: ATTEND Physician Assistant Medical
DX: N39.0 Urinary tract infection, site not specified (principal)

== ENCOUNTER → 2021-12-11 | Outpatient (REF) | payer OTHER ==
[~2021-12-11] MED LIST changes: +ASCO500C3 PO; -PURE500C5 PO
== END ==
LOC: M SMT 17:23
PROVIDERS: ATTEND Nurse Practitioner Family
DX: N61.1 Abscess of the breast and nipple (principal)

== ENCOUNTER → 2022-02-03 | Outpatient (REF) ==
[2022-02-03 13:08] LABS: COLLAGEN EPINEPHRINE 210 SECONDS (74-162)
[2022-02-03 13:30] LABS: COLLAGEN ADP 89 SECONDS (56-103)
== END ==
LOC: M LAB REF 12:41
PROVIDERS: ATTEND Orthopaedic Surgery
DX: Z79.899 Other long term (current) drug therapy (principal)

== ENCOUNTER → 2022-03-01 | Outpatient (CLI) | payer BC ==
[~2022-03-01] MED LIST changes: -MEDR10TA PO; +MEDR10TA9 PO
[2022-03-01 13:47] LABS: COLLAGEN EPINEPHRINE 98 SECONDS (74-162)
== END ==
LOC: M LAB 12:50
PROVIDERS: ATTEND Physical Medicine & Rehabilitation
DX: Z01.812 Encounter for preprocedural laboratory examination (principal)

== ENCOUNTER → 2022-04-14 | Outpatient (REF) | payer BC | LOC: M LAB REF 16:06 | PROVIDERS: ATTEND Physician Assistant | DX: J02.9 Acute pharyngitis, unspecified (principal) ==

== ENCOUNTER → 2023-06-21 | Outpatient (CLI) | payer BC ==
[2023-06-21 16:06] LABS: BASO # 0.1 10^3/uL (0.0-0.2); BASO % 0.7 % (0.0-1.0); EOS # 0.6 10^3/uL (0.0-0.5); EOS % 7.8 % (0.0-3.0); HEMATOCRIT 34.1 % (36.0-47.0); HEMOGLOBIN 9.9 g/dl (12.0-15.5); MEAN CORPUSCULAR HEMOGLOBIN 23.2 pg (27.0-33.0); MEAN CORPUSCULAR VOLUME 79.9 fl (80.0-96.0); MONO # 0.4 10^3/uL (0.0-0.8); MONO % 6.2 % (2.0-8.0); NEUTROPHILS % 57.2 % (36.0-66.0); PLATELET COUNT, AUTOMATED 257 10^3/uL (150-450); RED BLOOD COUNT 4.27 10^6/uL (4.00-5.40); WHITE BLOOD COUNT 7.1 10^3/uL (4.0-10.0)
[2023-06-21 16:21] LABS: ERYTHROCYTE SEDIMENTATION RATE 43 mm/hr (0-20)
[2023-06-21 16:27] LABS: C REACTIVE PROTEIN QUANTITATIV < 0.40 MG/DL (<1.0)
[2023-06-21 16:30] LABS: RHEUMATOID FACTOR QUANT < 3.5 IU/ML (<14)
[2023-06-21 16:47] LABS: ALBUMIN 3.6 G/DL (3.2-5.2); ALKALINE PHOSPHATASE 162 U/L (46-116); ALT/SGPT 18 U/L (7.0-40); AST/SGOT 14 U/L (<34); BILIRUBIN,TOTAL 0.2 MG/DL (0.3-1.2); BLOOD UREA NITROGEN 12 MG/DL (9-23); CALCIUM LEVEL 8.6 MG/DL (8.5-10.1); CARBON DIOXIDE LEVEL 30 MMOL/L (20-31); CHLORIDE LEVEL 106 MMOL/L (98-107); CREATININE FOR GFR 0.58 MG/DL (0.55-1.30); GLOMERULAR FILTRATION RATE > 60.0 (>58); GLUCOSE, FASTING 77 MG/DL (60-100); POTASSIUM SERUM 4.1 MMOL/L (3.5-5.1); SODIUM LEVEL 140 MMOL/L (136-145)
== END ==
LOC: M LAB 15:45
PROVIDERS: ATTEND Orthopaedic Surgery
DX: M16.12 Unilateral primary osteoarthritis, left hip (principal)

== ENCOUNTER → 2023-08-12 | Outpatient (CLI) | payer BC ==
[~2023-08-12] MED LIST changes: +AMIT25TA19; +TRAZ-189
[2023-08-12 17:12] LABS: INR 1.12
== END ==
LOC: M LAB 15:48
PROVIDERS: ATTEND Physician Assistant
DX: Z01.818 Encounter for other preprocedural examination (principal)

== ENCOUNTER → 2023-08-16 | Outpatient (CLI) | payer BC ==
[~2023-08-16] MED LIST changes: -AMIT25TA19; +AMIT25TA19 PO; +LIDOCAINE 1% MDV 20ML VIAL As Ordered ONE; +LR 1,000 ML IV SCH; -TRAZ-189; +TRAZ-189 PO
[2023-08-16 11:42] VITALS: TEMP 96.4
[2023-08-16 12:49] LABS: BASO % 0.7 % (0.0-1.0); EOS # 0.4 10^3/uL (0.0-0.5); EOS % 7.3 % (0.0-3.0); HEMATOCRIT 31.6 % (36.0-47.0); HEMOGLOBIN 9.2 g/dl (12.0-15.5); LYMPH # 1.7 10^3/uL (1.5-5.0); LYMPH % 31.5 % (24.0-44.0); MEAN CORPUSCULAR HEMOGLOBIN 23.3 pg (27.0-33.0); MEAN CORPUSCULAR HGB CONC 29.1 g/dl (32.0-36.5); MONO # 0.3 10^3/uL (0.0-0.8); MONO % 4.8 % (2.0-8.0); NEUTROPHILS % 55.3 % (36.0-66.0); PLATELET COUNT, AUTOMATED 240 10^3/uL (150-450); RED BLOOD COUNT 3.95 10^6/uL (4.00-5.40); WHITE BLOOD COUNT 5.5 10^3/uL (4.0-10.0)
[2023-08-16 14:08] VITALS: BP 133/83; O2SAT 96
== END ==
LOC: M IRPRO 11:35
PROVIDERS: ATTEND Internal Medicine Hematology & Oncology
DX: D64.9 Anemia, unspecified (principal)

== ENCOUNTER → 2023-08-18 | Outpatient (REF) | payer BC ==
[~2023-08-18] MED LIST changes: -LIDOCAINE 1% MDV 20ML VIAL As Ordered ONE; -LR 1,000 ML IV SCH
[2023-08-18 17:27] LABS: BASO % 0.5 % (0.0-1.0); EOS # 0.4 10^3/uL (0.0-0.5); EOS % 7.5 % (0.0-3.0); HEMATOCRIT 35.4 % (36.0-47.0); HEMOGLOBIN 10.2 g/dl (12.0-15.5); LYMPH # 1.3 10^3/uL (1.5-5.0); LYMPH % 24.2 % (24.0-44.0); MEAN CORPUSCULAR HEMOGLOBIN 23.6 pg (27.0-33.0); MEAN CORPUSCULAR HGB CONC 28.8 g/dl (32.0-36.5); MEAN CORPUSCULAR VOLUME 81.8 fl (80.0-96.0); MONO # 0.2 10^3/uL (0.0-0.8); MONO % 2.9 % (2.0-8.0); NEUTROPHILS # 3.6 10^3/uL (1.5-8.5); NEUTROPHILS % 64.7 % (36.0-66.0); PLATELET COUNT, AUTOMATED 231 10^3/uL (150-450); RED BLOOD COUNT 4.33 10^6/uL (4.00-5.40); WHITE BLOOD COUNT 5.5 10^3/uL (4.0-10.0)
[2023-08-18 17:33] LABS: ALBUMIN 3.3 G/DL (3.2-5.2); ALKALINE PHOSPHATASE 160 U/L (46-116); ALT/SGPT 27 U/L (7.0-40); AST/SGOT 42 U/L (<34); BILIRUBIN,TOTAL 0.3 MG/DL (0.3-1.2); BLOOD UREA NITROGEN 9 MG/DL (9-23); CALCIUM LEVEL 8.5 MG/DL (8.5-10.1); CARBON DIOXIDE LEVEL 29 MMOL/L (20-31); CHLORIDE LEVEL 107 MMOL/L (98-107); CREATININE FOR GFR 0.63 MG/DL (0.55-1.30); GLOMERULAR FILTRATION RATE > 60.0 (>58); GLUCOSE, FASTING 117 MG/DL (60-100); POTASSIUM SERUM 5.3 MMOL/L (3.5-5.1); SODIUM LEVEL 139 MMOL/L (136-145); TOTAL PROTEIN 6.7 G/DL (5.7-8.2)
== END ==
LOC: M SFHCLERA 10:55
PROVIDERS: ATTEND Family Medicine
DX: Z01.818 Encounter for other preprocedural examination (principal)

== ENCOUNTER 2023-08-23 07:22 | Day surgery (SDC) | payer BC ==
[~2023-08-23] VITALS: Ht 162.6 cm; Wt 81.6 kg
[2023-08-23] MEDS ORDERED: LR 1,000 ML IV SCH ×2 (08:00→11:05)
[2023-08-23] MEDS ORDERED: propofoL 200 MG/20 ML VIAL As Ordered ONE (08:35)
[2023-08-23] MEDS ORDERED: LIDOCAINE 2% 100MG/5ML SDV (FOR ANES.) As Ordered ONE (08:35)
[2023-08-23] MEDS ORDERED: dexmedeTOMIDine (4MCG/ML)200MCG/50ML BTL (PRECEDEX) As Ordered ONE (08:35)
[2023-08-23] MEDS ORDERED: MIDAZOLAM INJ 2MG/2ML VIAL As Ordered ONE (08:35)
[2023-08-23] MEDS ORDERED: fentaNYL 100 MCG/2 ML INJECTION As Ordered ONE (08:35)
[2023-08-23] MEDS ORDERED: ONDANSETRON 4MG 2ML VIAL As Ordered ONE (08:35)
[2023-08-23] MEDS ORDERED: SEVOFLURANE INHAL SOLN 250 ML BTL As Ordered ONE (08:43)
[2023-08-23 08:52] LABS: POTASSIUM SERUM 4.9 MMOL/L (3.5-5.1)
[2023-08-23] MEDS: ceFAZolin SOD 2 GM in IV 1 EA IV ONE (09:05)
[2023-08-23] MEDS ORDERED: LACRILUBE (AKWA TEARS) OPHTH OINT 3.5GM As Ordered ONE (09:13)
[2023-08-23] MEDS: POVIDONE-IODINE 5% OPHTH PREP SOL 30ML As Ordered ONE (09:25)
[2023-08-23] MEDS ORDERED: ACETAMINOPHEN 1000MG 100ML IV BAG As Ordered ONE (09:25)
[2023-08-23] MEDS: LIDOCAINE 2% W/EPINEPHRINE 20ML VIAL **PRES FREE As Ordered ONE (10:43)
[2023-08-23] MEDS: LIDOCAINE W/EPINEPHRINE 1% 20ML VIAL As Ordered ONE (10:44)
[2023-08-23] MEDS: BACITRACIN OINTMENT 30GM TUBE As Ordered ONE (10:44)
[2023-08-23] MEDS ORDERED: ONDANSETRON 4MG 2ML VIAL IV PRN (11:05)
[2023-08-23] MEDS ORDERED: HYDROMORPHONE HCL 0.5 MG/ 0.5 ML SYRINGE IV PRN (11:05)
[2023-08-23] MEDS ORDERED: fentaNYL 100 MCG/2 ML INJECTION IV PRN (11:05)
[2023-08-23] MEDS: oxyCODONE 5MG TAB PO PRN (11:37)
[2023-08-23 12:00] VITALS: BP 126/75; TEMP 97.7; O2SAT 100
== END 2023-08-23 12:09 | disposition home or self-care (01) ==
LOC: M SDC 07:22
PROVIDERS: ATTEND Plastic Surgery Surgery of the Hand
DX: C44.319 Basal cell carcinoma of skin of other parts of face (principal); Z88.1 Allergy status to other antibiotic agents; Z88.6 Allergy status to analgesic agent; Z90.710 Acquired absence of both cervix and uterus

== ENCOUNTER → 2024-04-26 | Outpatient (CLI) | payer BC, OTHER ==
[~2024-04-26] MED LIST changes: +GABA-1172; +METH-1164; +OXYC-517
== END ==
LOC: M WUC 11:36
PROVIDERS: ATTEND Podiatrist Foot & Ankle Surgery
DX: E55.9 Vitamin D deficiency, unspecified (principal)

== ENCOUNTER → 2024-05-08 | Outpatient (CLI) | payer OTHER | LOC: M PLAIMG 06:39 | PROVIDERS: ATTEND Podiatrist Foot & Ankle Surgery | DX: M84.871 Other disorders of continuity of bone, right ankle and foot (principal) ==

== ENCOUNTER → 2024-06-06 | Outpatient (CLI) | payer BC ==
[2024-06-06 07:15] LABS: BASO % 0.4 % (0.0-1.0); EOS # 0.4 10^3/uL (0.0-0.5); EOS % 5.7 % (0.0-3.0); HEMOGLOBIN 13.3 g/dl (12.0-15.5); MEAN CORPUSCULAR HEMOGLOBIN 31.9 pg (27.0-33.0); MEAN CORPUSCULAR HGB CONC 32.4 g/dl (32.0-36.5); MEAN CORPUSCULAR VOLUME 98.3 fl (80.0-96.0); MONO # 0.4 10^3/uL (0.0-0.8); MONO % 5.7 % (2.0-8.0); NEUTROPHILS % 58.9 % (36.0-66.0); PLATELET COUNT, AUTOMATED 198 10^3/uL (150-450); RED BLOOD COUNT 4.17 10^6/uL (4.00-5.40); WHITE BLOOD COUNT 6.8 10^3/uL (4.0-10.0)
[2024-06-06 07:39] LABS: ALBUMIN 3.1 G/DL (3.2-5.2); ALKALINE PHOSPHATASE 151 U/L (35-104); ALT/SGPT 22 U/L (7.0-40); AST/SGOT 17 U/L (<34); BILIRUBIN,TOTAL 0.3 MG/DL (0.3-1.2); BLOOD UREA NITROGEN 10 MG/DL (9-23); CALCIUM LEVEL 8.7 MG/DL (8.5-10.1); CARBON DIOXIDE LEVEL 29 MMOL/L (20-31); CHLORIDE LEVEL 107 MMOL/L (98-107); CREATININE FOR GFR 0.61 MG/DL (0.55-1.30); GLOMERULAR FILTRATION RATE > 90.0 (>58); GLUCOSE, FASTING 95 MG/DL (60-100); IRON (FE) 62 UG/DL (50-170); PERCENT SATURATION 16.8 % (13.2-45.0); POTASSIUM SERUM 3.9 MMOL/L (3.5-5.1); SODIUM LEVEL 142 MMOL/L (136-145); TOTAL IRON BINDING CAPACITY 370 UG/DL (250-425); TOTAL PROTEIN 6.5 G/DL (5.7-8.2)
[2024-06-06 07:41] LABS: FERRITIN 4.5 NG/ML (7.3-270.7)
[2024-06-06 07:44] LABS: VITAMIN B12 LEVEL 258 PG/ML (211-911)
[2024-06-06 07:47] LABS: FOLATE 7.7 NG/ML (>5.4)
== END ==
LOC: M LAB 06:27
PROVIDERS: ATTEND Internal Medicine Hematology & Oncology
DX: D50.9 Iron deficiency anemia, unspecified (principal)

== ENCOUNTER → 2024-06-06 | Outpatient (CLI) | payer BC ==
[~2024-06-06] MED LIST changes: +PROHANCE 279.3MG/ML 15ML VIAL As Ordered ONE; +PROHANCE 279.3MG/ML 5ML VIAL As Ordered ONE
== END ==
LOC: M RAD 16:21
DX: D50.9 Iron deficiency anemia, unspecified (principal)

== ENCOUNTER → 2024-07-09 | Outpatient (CLI) | payer BC ==
[~2024-07-09] VITALS: Ht 162.6 cm; Wt 81.8 kg
[~2024-07-09] MED LIST changes: -PROHANCE 279.3MG/ML 15ML VIAL As Ordered ONE; -PROHANCE 279.3MG/ML 5ML VIAL As Ordered ONE
[2024-07-09 07:20] VITALS: TEMP 97.1
[2024-07-09] MEDS: NS (Normal Saline) 0.9% 1,000 ML IV SCH (08:20)
[2024-07-09] MEDS: ceFAZolin SODIUM 2 GM in DEXTROSE 5% (D5W) ADV/MINI-BAG 50 ML IV ONE (08:21)
[2024-07-09] MEDS: fentaNYL 100 MCG/2 ML INJECTION IV PRN (08:42)
[2024-07-09] MEDS: MIDAZOLAM INJ 2MG/2ML VIAL IV PRN (08:42)
[2024-07-09] MEDS: LIDOCAINE 1% MDV 20ML VIAL SC SCH (08:50)
[2024-07-09 09:19] VITALS: BP 120/80; O2SAT 99
== END ==
LOC: M IRPRO 07:12
DX: D50.9 Iron deficiency anemia, unspecified (principal)
CPT/HCPCS: 36561; 99152; C1894; J0690; J1642; J2250; J3010

== ENCOUNTER → 2024-11-13 | Outpatient (CLI) | payer MEDICAID ==
[~2024-11-13] MED LIST changes: +LIDO30CR18 TOP
== END ==
LOC: M RAD 06:55
PROVIDERS: ATTEND Physician Assistant
DX: J32.8 Other chronic sinusitis (principal); J34.2 Deviated nasal septum; J34.89 Other specified disorders of nose and nasal sinuses

== ENCOUNTER → 2025-01-30 | Outpatient (REF) | payer MEDICAID, OTHER ==
[~2025-01-30] MED LIST changes: -BACTDSTA PO; +SULF-8 PO
== END ==
LOC: M LAB REF 17:56
PROVIDERS: ATTEND Physician Assistant
DX: B34.9 Viral infection, unspecified (principal)